=== PATIENT | male | born 1965 | race Hispanic/Latino ===

== ENCOUNTER 2017-07-04 07:11 | Emergency (ER) | payer SELFPAY ==
[2017-07-04] MEDS ORDERED: DELTASONE PO ONE (08:55)
[2017-07-04] MEDS ORDERED: TYLENOL PO ONE (08:57)
--- NOTE | 2017-07-04 08:58 | Emergency Department Report ---
Minor Respiratory - HPI Chief Complaint: Upper Respiratory Infection Stated Complaint: FLU SX Time Seen by Provider: 07/04/17 08:26 Severity: moderate Minor Respiratory: Yes Able to Tolerate Fluids, Yes Cough, No Rhinorrhea, No Sore Throat, No Ear Pain, No Sick Contacts, No Hemoptysis, No Chest Pain, No Shortness of Breath, No Fever Other History: 52-year-old smoker male with no prior medical history presents to ED complaining of cough and body aches that started yesterday. ED Review of Systems ROS: Stated complaint: FLU SX Other details as noted in HPI Constitutional: denies: chills, fever Eyes: denies: eye pain, eye discharge, vision change ENT: denies: ear pain, throat pain Respiratory: denies: cough, shortness of breath, wheezing Cardiovascular: denies: chest pain, palpitations Endocrine: no symptoms reported Gastrointestinal: denies: abdominal pain, nausea, diarrhea Genitourinary: denies: urgency, dysuria Musculoskeletal: denies: back pain, joint swelling, arthralgia Skin: denies: rash, lesions Neurological: denies: headache, weakness, paresthesias Psychiatric: denies: anxiety, depression Hematological/Lymphatic: denies: easy bleeding, easy bruising ED Past Medical Hx - Past Medical History Previous Medical History?: Yes Hx Asthma: Yes - Surgical History Past Surgical History?: No - Social History Smoking Status: Current Every Day Smoker Substance Use Type: Non Opiate Pain - Medications Home Medications: Home Medications Medication Instructions Recorded Confirmed Last Taken Type ALBUTEROL Inhaler [ProAir HFA 2 puff IH QID PRN #1 device 07/04/17 Unknown Rx Inhaler] Benzonatate [Tessalon Perles] 100 mg PO Q8HR #24 capsule 07/04/17 Unknown Rx Guaifen/Dextromethorphan/PE 10 ml PO Q6H #1 bottle 07/04/17 Unknown Rx [Robitussin Cough-Cold Cf Liq] Ibuprofen [Motrin] 800 mg PO Q8HR PRN #30 tablet 07/04/17 Unknown Rx Minor Respiratory Exam - Exam General: Vital signs noted. No distress. Alert and acting appropriately. HEENT: Yes Moist Mucous Membranes, No Pharyngeal Erythema, No Pharyngeal Exudates, No Rhinorrhea, No Conjuctival Injection, No Frontal Tenderness, No Maxillary Tenderness Ear: Neither TM Bulge, Neither TM Erythema, Neither EAC Pain, Neither EAC Discharge Neck: Yes Supple, No Adenopathy Lungs: Yes Good Air Exchange, No Wheezes, No Ronchi, No Stridor, No Cough, No Labored Respirations, No Retractions, No Use of Accessory Muscles, No Other Abnormal Lung Sounds Heart: Yes Regular, No Murmur Abdomen: Yes Normal Bowel Sounds, No Tenderness, No Peritoneal Signs Skin: No Rash, No Edema Neurologic: Alert and oriented, no deficits. Musculoskeletal: Unremarkable. ED Course Vital Signs 07/04/17 07:20 Temperature 98.4 F Pulse Rate 97 H Respiratory 18 Rate Blood Pressure 119/77 O2 Sat by Pulse 96 Oximetry ED Medical Decision Making - Radiology Data Radiology results: report reviewed, image reviewed Fluoro Time In Minutes: CHEST 2 VIEWS INDICATION: Cough. COMPARISON: 02/17/2012 FINDINGS: PA and lateral chest radiographs demonstrate normal cardiomediastinal silhouette. Clear, well-expanded lungs. Slight thoracic spine degenerative spurring at few levels. CONCLUSION: No acute chest process. Thank you for the opportunity to participate in this patient's care. Transcribed By: RS Dictated By: GEETHA LUNA MD Electronically Authenticated By: GEETHA LUNA MD Signed Date/Time: 07/04/17 0943 - Medical Decision Making 52-year-old male presents with upper respiratory infection with bronchitis. Fever resolved no fever during the ED stay. Patient received respiratory breathing treatment of DuoNeb in ED, prednisone, Robitussin. I discussed with the patient to cease smoking smoking only worsen symptoms. Discussed with mother symptomatic relief with [id number] medications. Discussed continue Tylenol and Motrin as needed for fever and pain. Discussed increase fluids and diet intake. Discussed rest much needed. Discussed daily vitamin C for immune booster. Discussed follow-up with fisheries inspector in 3-5 days. Patient's mother verbally states she understands and will comply the following instructions and follow-up Vital signs stable. Patient is in no acute distress Critical care attestation.: If time is entered above; I have spent that time in minutes in the direct care of this critically ill patient, excluding procedure time. ED Disposition Clinical Impression: URI (upper respiratory infection) Qualifiers: URI type: unspecified URI Qualified Code(s): J06.9 - Acute upper respiratory infection, unspecified Disposition: DC-01 TO HOME OR SELFCARE Is pt being admited?: No Does the pt Need Aspirin: No Condition: Stable Instructions: Upper Respiratory Infection (ED), Viral Syndrome (ED), Acute Cough (ED) Additional Instructions: Make sure to follow up with the primary care physician as discussed. Take all your medications as you've been prescribed. If you have any worsening symptoms or develop new symptoms please return to ED immediately. Prescriptions: ALBUTEROL Inhaler [ProAir HFA Inhaler] 2 puff IH QID PRN #1 device PRN Reason: Shortness Of Breath Benzonatate [Tessalon Perles] 100 mg PO Q8HR #24 capsule Guaifen/Dextromethorphan/PE [Robitussin Cough-Cold Cf Liq] 10 ml PO Q6H #1 bottle Ibuprofen [Motrin] 800 mg PO Q8HR PRN #30 tablet PRN Reason: Pain Referrals: PRIMARY CARE, [Primary Care Provider] - 3-5 Days [facility] [Outside] - 3-5 Days [facility] [Outside] - 3-5 Days [facility] [Outside] - 3-5 Days Forms: Accompanied Note, Work/School Release Form(ED) Time of Disposition: 10:51
--- NOTE | 2017-07-04 09:51 | XRay Report ---
CHEST 2 VIEWS INDICATION: Cough. COMPARISON: 02/17/2012 FINDINGS: PA and lateral chest radiographs demonstrate normal cardiomediastinal silhouette. Clear, well-expanded lungs. Slight thoracic spine degenerative spurring at few levels. CONCLUSION: No acute chest process. Thank you for the opportunity to participate in this patient's care.
[2017-07-04 10:25] VITALS: BP 120/75
== END 2017-07-04 11:09 | disposition home or self-care (01) ==
LOC: ED 07:11
DX: J06.9 Acute upper respiratory infection, unspecified (principal); J45.909 Unspecified asthma, uncomplicated; F17.200 Nicotine dependence, unspecified, uncomplicated
CPT/HCPCS: 71046; 99283; J7512

== ENCOUNTER 2020-01-07 17:36 | Emergency (ER) | payer SELFPAY ==
--- NOTE | 2020-01-07 18:41 | Event Note ---
ED Screening Note ED Screening Note: BLE mostly in the ankles that began a year ago and worsened today has not seen anyone for this no daily meds pmhx asthma +smoker This initial assessment/diagnostic orders/clinical plan/treatment(s) is/are subject to change based on patients health status, clinical progression and re- assessment by fellow clinical providers in the ED. Further treatment and workup at subsequent clinical providers discretion. Patient/guardian urged not to elope from the ED as their condition may be serious if not clinically assessed and managed. Initial orders include: labs
[2020-01-07 19:42] LABS: Hematocrit 42.3 % (35.5-45.6); Hemoglobin 13.9 gm/dl (11.8-15.2); Mean Corpuscular HGB Conc 33 % (32-34); Mean Corpuscular Volume 87 fl (84-94); Platelet Count 339 K/mm3 (140-440); Red Blood Count 4.86 M/mm3 (3.65-5.03); Red Cell Distribution Width 14.2 % (13.2-15.2)
[2020-01-07] MEDS ORDERED: ACETAMINOPHEN 500 MG TAB PO ONE (20:06)
[2020-01-07] MEDS ORDERED: IBUPROFEN 600 MG TAB PO ONE (20:06)
[2020-01-07] MEDS ORDERED: predniSONE 20 MG TAB PO ONE (20:06)
[2020-01-07 20:10] LABS: Alanine Aminotransferase 20 units/L (7-56); Albumin 4.4 g/dL (3.9-5); BUN/Creatinine Ratio 17; Blood Urea Nitrogen 15 mg/dL (9-20); Calcium 9.4 mg/dL (8.4-10.2); Hemolysis Index 27
--- NOTE | 2020-01-07 21:04 | Emergency Department Report ---
ED Extremity Problem HPI - General Chief complaint: Extremity Problem,Nontraumatic Stated complaint: SWOLLEN LEG Time Seen by Provider: 01/07/20 18:38 Source: patient Mode of arrival: Ambulatory Limitations: No Limitations - History of Present Illness Initial comments: Patient is a 54-year-old male with history of asthma presents to the ED with worsening bilateral ankle and foot pain with swelling for the last 2 days. Patient states that he has had this pain in his ankles and feet for over 1 year and states that he has never been evaluated for the same. Patient states that in the last 2 days he has been on his feet a lot walking around and that the pain got worse. Patient denies shortness of breath, chest pain, traumatic injury, fall, nausea and vomiting, low back pain, dizziness, syncope, fever, chills, cough, heavy lifting or abdominal pain. MD Complaint: extremity pain (Bilateral ankle and foot pain), extremity swelling (Bilateral foot and ankle), joint swelling (Bilateral foot and ankle), joint mary nt (Bilateral ankle and foot) -: Gradual, year(s) (1) Location: bilateral lower extremity (ankles and feet) History of Same: Yes -: Yes arthralgia, No fever, No associated dyspnea, No associated chest pain Radiation: none Severity scale (0 -10): 10 Quality: aching, sharp Consistency: constant Improves with: nothing Worsens with: weight bearing, walking, exertion, palpation Associated Symptoms: denies other symptoms, arthralgias. denies: chest pain, shortness of breath, myalgias, rash, other - Related Data Previous Rx's Medication Instructions Recorded Last Taken Type Albuterol Mdi (or & Nicu Only) 2 puff IH QID PRN #1 device 07/04/17 Unknown Rx [ProAir HFA Inhaler] Benzonatate [Tessalon Perles] 100 mg PO Q8HR #24 capsule 07/04/17 Unknown Rx Guaifen/Dextromethorphan/PE 10 ml PO Q6H #1 bottle 07/04/17 Unknown Rx [Robitussin Cough-Cold Cf Liq] Ibuprofen [Motrin] 800 mg PO Q8HR PRN #30 tablet 07/04/17 Unknown Rx Cyclobenzaprine [Flexeril] 10 mg PO TID PRN #21 tablet 01/07/20 Unknown Rx Naproxen 500 mg PO Q12H PRN #30 tablet 01/07/20 Unknown Rx predniSONE [Deltasone] 60 mg PO QDAY #15 tab 01/07/20 Unknown Rx Allergies Allergy/AdvReac Type Severity Reaction Status Date / Time No Known Allergies Allergy Unverified 07/04/17 07:23 ED Review of Systems ROS: Stated complaint: SWOLLEN LEG Other details as noted in HPI Constitutional: denies: chills, fever Eyes: denies: eye pain, eye discharge, vision change ENT: denies: ear pain, throat pain Respiratory: denies: cough, shortness of breath, wheezing Cardiovascular: denies: chest pain, palpitations Endocrine: no symptoms reported Gastrointestinal: denies: abdominal pain, nausea, diarrhea Genitourinary: denies: urgency, dysuria Musculoskeletal: joint swelling (Mild bilateral foot and ankle swelling), arthralgia (Bilateral ankle and foot pain with mild swelling), myalgia. denies: back pain Skin: denies: rash, lesions Neurological: denies: headache, weakness, paresthesias Psychiatric: denies: anxiety, depression Hematological/Lymphatic: denies: easy bleeding, easy bruising ED Past Medical Hx - Past Medical History Previous Medical History?: Yes Hx Asthma: Yes - Surgical History Past Surgical History?: No - Social History Smoking Status: Current Every Day Smoker Substance Use Type: None - Medications Home Medications: Home Medications Medication Instructions Recorded Confirmed Last Taken Type Albuterol Mdi (or & Nicu Only) 2 puff IH QID PRN #1 device 07/04/17 Unknown Rx [ProAir HFA Inhaler] Benzonatate [Tessalon Perles] 100 mg PO Q8HR #24 capsule 07/04/17 Unknown Rx Guaifen/Dextromethorphan/PE 10 ml PO Q6H #1 bottle 07/04/17 Unknown Rx [Robitussin Cough-Cold Cf Liq] Ibuprofen [Motrin] 800 mg PO Q8HR PRN #30 tablet 07/04/17 Unknown Rx Cyclobenzaprine [Flexeril] 10 mg PO TID PRN #21 tablet 01/07/20 Unknown Rx Naproxen 500 mg PO Q12H PRN #30 tablet 01/07/20 Unknown Rx predniSONE [Deltasone] 60 mg PO QDAY #15 tab 01/07/20 Unknown Rx ED Physical Exam - General Limitations: No Limitations General appearance: alert, in no apparent distress - Head Head exam: Present: atraumatic, normocephalic, normal inspection - Eye Eye exam: Present: normal appearance, PERRL, EOMI Pupils: Present: normal accommodation - ENT ENT exam: Present: normal exam, normal orophraynx, mucous membranes moist, TM's normal bilaterally, normal external ear exam - Neck Neck exam: Present: normal inspection, full ROM. Absent: tenderness, l ymphadenopathy - Respiratory Respiratory exam: Present: normal lung sounds bilaterally. Absent: respiratory distress, wheezes, rales, stridor, chest wall tenderness, accessory muscle use, decreased breath sounds, prolonged expiratory - Cardiovascular Cardiovascular Exam: Present: normal rhythm, tachycardia, normal heart sounds. Absent: systolic murmur, diastolic murmur, rubs, gallop - GI/Abdominal GI/Abdominal exam: Present: soft, normal bowel sounds. Absent: tenderness, guar ding, rebound, hyperactive bowel sounds, hypoactive bowel sounds, mass - Extremities Exam Extremities exam: Present: normal inspection, full ROM, tenderness (Bilateral ankle and foot mild tenderness), normal capillary refill, joint swelling (Mild bilateral ankle and foot swelling) - Back Exam Back exam: Present: normal inspection, full ROM. Absent: tenderness, CVA tenderness (R), CVA tenderness (L), muscle spasm, paraspinal tenderness, vertebral tenderness - Neurological Exam Neurological exam: Present: alert, oriented X3, CN II-XII intact, normal gait, reflexes normal - Psychiatric Psychiatric exam: Present: normal affect, normal mood - Skin Skin exam: Present: warm, dry, intact, normal color. Absent: rash ED Course Vital Signs 01/07/20 01/07/20 01/07/20 18:39 20:22 20:25 Temperature 97.9 F Pulse Rate 102 H Respiratory 20 18 18 Rate Blood Pressure 140/87 O2 Sat by Pulse 97 Oximetry ED Medical Decision Making - Lab Data Result diagrams: 01/07/20 19:29 01/07/20 19:29 - Medical Decision Making This is a 54-year-old male with history of asthma presents to the ED with worsening bilateral ankle and foot pain with swelling for the last 2 days. Patient states that he has had this pain in his ankles and feet for over 1 year and states that he has never been evaluated for the same. Patient states that in the last 2 days he has been on his feet a lot walking around and that the pain got worse. In the ED, patient is alert and oriented x3 and is not in distress. Patient was treated for pain in the ED and lab test results are reviewed and showed acute leukocytosis of 13,200 which is a nonspecific finding. The rest of the lab test results are all nonactionable. Patient was discharged home on pain medications and advised follow-up with his primary care physician in 7 to 10 days for reevaluation or return to the ED immediately if symptoms get worse. - Differential Diagnosis Osteoarthritis; Tendinitis; Muscle strain Critical care attestation.: If time is entered above; I have spent that time in minutes in the direct care of this critically ill patient, excluding procedure time. ED Disposition Clinical Impression: Chronic osteoarthritis, Tendonitis of ankle or foot Disposition: - TO HOME OR SELFCARE Is pt being admited?: No Does the pt Need Aspirin: No Condition: Stable Instructions: Tendinitis (ED), Osteoarthritis (ED) Additional Instructions: Take medication with food, drink plenty of fluids and follow-up with your prim [place] care physician in 7 to 10 days for reevaluation. Return to the ED immediately if symptoms get worse. Prescriptions: predniSONE [Deltasone] 60 mg PO QDAY #15 tab Cyclobenzaprine [Flexeril] 10 mg PO TID PRN #21 tablet PRN Reason: Muscle Spasm Naproxen 500 mg PO Q12H PRN #30 tablet PRN Reason: Pain , Severe (7-10) Referrals: [facility] [Provider Group] - 3-5 Days Time of Disposition: 21:02 Print Language: OCCITAN
[2020-01-07 21:29] LABS: Basophils % (Manual) 0 % (0.0-1.8); RBC Morphology Normal; Total Cells Counted 100
[2020-01-07 21:46] VITALS: BP 144/73
== END 2020-01-07 21:48 | disposition home or self-care (01) ==
LOC: ED 17:36
DX: M77.52 Other enthesopathy of left foot and ankle (principal); M77.51 Other enthesopathy of right foot and ankle; M19.072 Primary osteoarthritis, left ankle and foot; M19.071 Primary osteoarthritis, right ankle and foot; J45.909 Unspecified asthma, uncomplicated; F17.200 Nicotine dependence, unspecified, uncomplicated; Z79.1 Long term (current) use of non-steroidal anti-inflammatories (NSAID); Z79.899 Other long term (current) drug therapy
CPT/HCPCS: 36415; 80053; 83880; 84550; 85007; 85025; 99283; J7512

== ENCOUNTER 2021-12-02 15:07 | Inpatient (IN) | payer MEDICAID ==
[2021-12-03] MEDS: METOPROLOL TARTRATE 25 MG TAB PO SCH ×2 (00:16→08:25)
[2021-12-03] MEDS: levETIRAcetam 500 MG TAB PO SCH ×3 (00:16→21:15)
[2021-12-03] MEDS: MELATONIN 5 MG TAB PO PRN ×2 (00:16→21:13)
[2021-12-03 01:46] LABS: Basophils % (Auto) 0.6 % (0.0-1.8); Eosinophils # (Auto) 0.2 K/mm3 (0.0-0.4); Eosinophils % (Auto) 2.8 % (0.0-4.3); Hematocrit 28.8 % (35.5-45.6); Hemoglobin 9.4 gm/dl (11.8-15.2); Lymphocytes % (Auto) 23.3 % (13.4-35.0); Mean Corpuscular HGB Conc 32 % (32-34); Mean Corpuscular Volume 85 fl (84-94); Monocytes # (Auto) 0.7 K/mm3 (0.0-0.8); Monocytes % (Auto) 8.8 % (0.0-7.3); Platelet Count 329 K/mm3 (140-440); Red Cell Distribution Width 16.8 % (13.2-15.2)
[2021-12-03 03:25] LABS: Alanine Aminotransferase 13 units/L (7-56); Albumin 3.7 g/dL (3.9-5); BUN/Creatinine Ratio 13; Blood Urea Nitrogen 12 mg/dL (9-20); Chol/HDL Ratio 3.86 %; HDL Cholesterol 36 mg/dL (40-59); Hemolysis Index 2; LDL Cholesterol,Direct 83 mg/dL (50-130)
[2021-12-03] MEDS ORDERED: ALBUTEROL 8.5 GM MDI INHALATION IH PRN (08:16)
--- NOTE | 2021-12-03 08:16 | History and Physical Report ---
GP History & Physical - History of Present Illness Date of admission: 12/02/21 Date of Examination: 12/03/21 Chief Complaint: suicidal ideation History of Present Illness: The patient is a 56 years old male with history of polysubstance abuse who was admitted for suicidal ideation. Per note, the has suicidal ideation because he is going blind and unable to provide for his family. The patient was seen today. He is calm, alert and oriented x3. He reports ongoing depression and intermittent suicidal ideation. He reports recent trigger such as " my son always telling me and his mom the we don't care about him and we do the best we can but that's not good enough for him; I think his step brother has a lot to do with it." The patient endorses depression states his disability makes him feel worthless and low self esteem. The patient denies any current suicidal/homicidal ideation and denies hallucinations. PAST PSYCHIATRIC HISTORY: Diagnoses: Polysubstance abuse,Depression Suicide attempts or Self-harm behavior: Denies Prior psychiatric hospitalizations: Yes Substance Abuse history:Meth, crack cocaine, Marijuana, LSD Previous psychiatric medications tried: Unknown Outpatient treatment: Unknown PAST MEDICAL HISTORY: Stroke, HTN, CHF, hyperlipedemia, Seizure, CABG Family Psychiatric History: None reported or documented SOCIAL HISTORY Marital Status: Living Arrangements: Lives with Employment Status: Disabled Access to guns/weapons: Denies Education: 10th grade History of Abuse:Denies Legal History: Denies REVIEW OF SYSTEMS Constitutional: Negative for weight loss ENT: Negative for stridor Respiratory: Negative for cough or hemoptysis All other systems reviewed and are negative MENTAL STATUS EXAMINATION General Appearance and Behavior: Age appropriate, wearing appropriate clothes, cooperative, polite with questioning, good eye contact Cooperation: cooperative Psychomotor Behavior: Psychomotor normal Mood: Depressed Affect and affective range: congruent with stated affect Thought Process: Goal directed Thought Content: Reality oriented Speech: Normal volume, Regular rate and rhythm Suicidal Ideation: Denies Homicidal Ideation: Denies Hallucination: Denies Delusions:Denies Impulse Control: Limited Insight and Judgment: Limited Memory: Intact Attention:attentive Orientation: Alert and oriented Diagnoses: Major depressive disorder Treatment Plan Patient admitted for inpatient psychiatric evaluation, medication adjustment and close monitoring The patient's behavior, mood, sleep and appetite will be closely monitored. Patient enrolled in individual and group therapeutic sessions and encouraged to attend. Patient provided with a safe and structured environment. Patient's physical health needs will be addressed by the Hospitalist. Hospitalist Consulted Labs including CBC, CMP, Lipid profile and Hemoglobin A1C levels ordered for baseline reference Social Assessment will be completed and the Meat Pumper will work with patient and family to ensure a suitable and safe disposition Medication adjustment will be made as clinically indicated Continue home meds Start Effexor 37.5mg po daily Usual Wellness Moravian/Preservation: - Start Trazodone 50 mg po QHS & 50 mg po QHS PRN between 10 PM & 2 AM for insomnia - Start Melatonin 5 mg po QHS to promote circadian rhythm The patient agreed on the treatment plan, understood the risk, benefit, alternative treatment, potential consequence of no treatment, and gave informed consent. Estimated days: 7 Post hospital care: primary care provider, psychiatric provider Case staffed with Dr. Mcclelland Legal Status: Voluntary Patient Problems: Legal Status: Voluntary Medications and Allergies Medications and Allergies Allergies Allergy/AdvReac Type Severity Reaction Status Date / Time naproxen Allergy Unknown Unverified 12/02/21 15:08 Home Medications Medication Instructions Recorded Confirmed Last Taken Type Albuterol Mdi (or & Nicu Only) 2 puff IH QID PRN #1 device 07/04/17 12/03/21 Unknown Rx [ProAir HFA Inhaler] Benzonatate [Tessalon Perles] 100 mg PO Q8HR #24 capsule 07/04/17 12/03/21 Unknown Rx Guaifen/Dextromethorphan/PE 10 ml PO Q6H #1 bottle 07/04/17 12/03/21 Unknown Rx [Robitussin Cough-Cold Cf Liq] Ibuprofen [Motrin] 800 mg PO Q8HR PRN #30 tablet 07/04/17 12/03/21 Unknown Rx Cyclobenzaprine [Flexeril] 10 mg PO TID PRN #21 tablet 01/07/20 12/03/21 Unknown Rx predniSONE [Deltasone] 60 mg PO QDAY #15 tab 01/07/20 12/03/21 Unknown Rx Active Meds: Active Medications Atorvastatin Calcium (Atorvastatin 40 Mg Tab) 80 mg PO QHS [facility] Last Admin: 12/03/21 00:16 Dose: 80 mg Levetiracetam (Levetiracetam 500 Mg Tab) 1,000 mg PO BID [facility] Last Admin: 12/03/21 00:16 Dose: 1,000 mg Melatonin (Melatonin 5 Mg Tab) 5 mg PO QHS PRN PRN Reason: Sleep Last Admin: 12/03/21 00:16 Dose: 5 mg Metoprolol Tartrate (Metoprolol Tartrate 25 Mg Tab) 25 mg PO BID@0800,1700 [facility]ASH[facility] Last Admin: 12/03/21 00:16 Dose: 25 mg Results - Results Labs/Vitals: Laboratory Last Values WBC 8.5 K/mm3 (4.5-11.0) 12/03/21 01:09 RBC 3.40 M/mm3 (3.65-5.03) L 12/03/21 01:09 Hgb 9.4 gm/dl (11.8-15.2) L 12/03/21 01:09 Hct 28.8 % (35.5-45.6) L 12/03/21 01:09 MCV 85 fl (84-94) 12/03/21 01:09 MCH 28 pg (28-32) 12/03/21 01:09 MCHC 32 % (32-34) 12/03/21 01:09 RDW 16.8 % (13.2-15.2) H 12/03/21 01:09 Plt Count 329 K/mm3 (140-440) 12/03/21 01:09 Lymph % (Auto) 23.3 % (13.4-35.0) 12/03/21 01:09 Dixon % (Auto) 8.8 % (0.0-7.3) H 12/03/21 01:09 Eos % (Auto) 2.8 % (0.0-4.3) 12/03/21 01:09 Baso % (Auto) 0.6 % (0.0-1.8) 12/03/21 01:09 Lymph # (Auto) 2.0 K/mm3 (1.2-5.4) 12/03/21 01:09 Dixon # (Auto) 0.7 K/mm3 (0.0-0.8) 12/03/21 01:09 Eos # (Auto) 0.2 K/mm3 (0.0-0.4) 12/03/21 01:09 Baso # (Auto) 0.0 K/mm3 (0.0-0.1) 12/03/21 01:09 Seg Neutrophils % 64.5 % (40.0-70.0) 12/03/21 01:09 Seg Neutrophils # 5.5 K/mm3 (1.8-7.7) 12/03/21 01:09 Sodium 139 mmol/L (137-145) 12/03/21 01:09 Potassium 3.9 mmol/L (3.6-5.0) 12/03/21 01:09 Chloride 100.9 mmol/L (98-107) 12/03/21 01:09 Carbon Dioxide 23 mmol/L (22-30) 12/03/21 01:09 Anion Gap 19 mmol/L 12/03/21 01:09 BUN 12 mg/dL (9-20) 12/03/21 01:09 Creatinine 0.9 mg/dL (0.8-1.3) 12/03/21 01:09 Estimated GFR > 60 ml/min 12/03/21 01:09 BUN/Creatinine Ratio 13 % 12/03/21 01:09 Glucose 102 mg/dL (75-100) H 12/03/21 01:09 Hemoglobin A1c 5.0 % (4-6) 12/03/21 01:09 Calcium 9.0 mg/dL (8.4-10.2) 12/03/21 01:09 Total Bilirubin 0.30 mg/dL (0.1-1.2) 12/03/21 01:09 AST 23 units/L (5-40) 12/03/21 01:09 ALT 13 units/L (7-56) 12/03/21 01:09 Alkaline Phosphatase 144 units/L (35-129) H 12/03/21 01:09 Total Protein 6.7 g/dL (6.3-8.2) 12/03/21 01:09 Albumin 3.7 g/dL (3.9-5) L 12/03/21 01:09 Albumin/Globulin Ratio 1.2 % 12/03/21 01:09 Triglycerides 119 mg/dL (2-149) 12/03/21 01:09 Cholesterol 139 mg/dL (50-199) 12/03/21 01:09 LDL Cholesterol Direct 83 mg/dL (50-130) 12/03/21 01:09 HDL Cholesterol 36 mg/dL (40-59) L 12/03/21 01:09 Cholesterol/HDL Ratio 3.86 % 12/03/21 01:09 TSH 4.710 mlU/mL (0.270-4.200) H 12/03/21 01:09 Last Vital Signs Temp 97.8 F 12/02/21 22:25 Pulse 92 H 12/03/21 00:16 Resp 18 12/02/21 22:25 BP 123/74 12/03/21 00:16 Pulse Ox 97 12/02/21 22:25 Physical Examination - Constitutional Vitals: Vital Signs Temp Pulse Resp BP Pulse Ox 97.8 F 92 H 18 123/74 97 12/02/21 22:25 12/03/21 00:16 12/02/21 22:25 12/03/21 00:16 12/02/21 22:25 Temperature -Last 24 Hours Temperature 97.8 F Mental Status Exam - Vital signs Last Vital Signs Temp 97.8 F 12/02/21 22:25 Pulse 92 H 12/03/21 00:16 Resp 18 12/02/21 22:25 BP 123/74 12/03/21 00:16 Pulse Ox 97 12/02/21 22:25 Physician Certification - Certification Statement Physician Certification Statement: This is an acknowledgement statement that MELYSSA IGNACIO is a 56 year old M who requires inpatient psychiatric admission for treatment which could reasonably be expected to improve the patient's condition for Estimated period of time patient will need to remain in the hospital: [ ] Plan for post-hospital care: [ ]
[2021-12-03] MEDS ORDERED: PHENYLEPHRINE PO SCH (08:30)
[2021-12-03] MEDS ORDERED: DEXTROMETHORPHAN PO SCH (08:30)
[2021-12-03] MEDS ORDERED: [UNRECOGNIZED DRUG - OTHER] PO SCH (08:30)
[2021-12-03] MEDS ORDERED: GUAIFENESIN PO SCH (08:30)
[2021-12-03] MEDS ORDERED: CYCLOBENZAPRINE 10 MG TAB PO PRN (09:00)
[2021-12-03] MEDS ORDERED: ALBUTEROL 2.5 MG/3 ML NEBU IH PRN (09:00)
[2021-12-03] MEDS ORDERED: IBUPROFEN 800 MG TAB PO PRN (09:00)
[2021-12-03] MEDS ORDERED: guaiFENesin DM 200/20 MG ORAL LIQD 10 ML PO PRN (10:00)
[2021-12-03] MEDS ORDERED: VENLAFAXINE 37.5 MG TAB PO SCH (10:00)
[2021-12-03] MEDS ORDERED: predniSONE 20 MG TAB PO SCH (10:00)
[2021-12-03] MEDS: BENZONATATE 100 MG CAP PO SCH ×3 (11:27→21:16)
--- NOTE | 2021-12-03 16:07 | Consultation ---
History of Present Illness - Reason for Consult Consult date: 12/03/21 Medical management - History of Present Illness The patient is a 56 years old male with history of polysubstance abuse who was admitted for suicidal ideation. Per note, the has suicidal ideation because he is going blind and unable to provide for his family. Hospitalist service was consulted for medical management. Past History Past Medical History: other (Progressive vision loss) Social history: , lives with family, prescription drug abuse, full code, other (Polysubstance abuse) Medications and Allergies Allergies Allergy/AdvReac Type Severity Reaction Status Date / Time naproxen Allergy Intermediate Shortness Verified 12/03/21 14:38 of Breath Home Medications Medication Instructions Recorded Confirmed Last Taken Type Amiodarone HCl [Pacerone] 200 mg PO DAILY 12/03/21 12/03/21 Unknown History Apixaban [Eliquis] 5 mg PO BID 12/03/21 12/03/21 Unknown History Aspirin EC [Halfprin EC] 81 mg PO QDAY 12/03/21 12/04/21 Unknown History Atorvastatin [Lipitor Tab] 80 mg PO QHS 12/04/21 12/04/21 Unknown History Citalopram [celeXA] 10 mg PO QDAY 12/04/21 12/04/21 Unknown History Furosemide [Lasix TAB] 40 mg PO QDAY 12/04/21 12/04/21 Unknown History Melatonin [Melatonin 5MG TAB] 5 mg PO HS 12/04/21 12/04/21 Unknown History Metoprolol [Lopressor] 25 mg PO BID 12/04/21 12/04/21 Unknown History Multivitamin/Iron/Folic Acid 1 each PO DAILY 12/04/21 12/04/21 Unknown History [Multivitamin with Iron Tablet] Potassium Chloride [K-Dur] 20 meq PO QDAY 12/04/21 12/04/21 Unknown History levETIRAcetam [Keppra TAB] 1,000 mg PO BID 12/04/21 12/04/21 Unknown History Active Meds: Active Medications Albuterol (Albuterol 2.5 Mg/3 Ml Nebu) 2.5 mg IH Q4HRT PRN PRN Reason: Shortness Of Breath Benzonatate (Benzonatate 100 Mg Cap) 100 mg PO Q8HR [facility] Last Admin: 12/03/21 14:30 Dose: 100 mg Cyclobenzaprine HCl (Cyclobenzaprine 10 Mg Tab) 10 mg PO TID PRN PRN Reason: Muscle Spasm Guaifenesin (Guaifenesin Dm 200/20 Mg Oral Liqd 10 Ml) 10 ml PO Q6H PRN PRN Reason: Cough Ibuprofen (Ibuprofen 800 Mg Tab) 800 mg PO Q8HR PRN PRN Reason: Pain, Mild (1-3) Last Admin: 12/03/21 09:48 Dose: 800 mg Levetiracetam (Levetiracetam 500 Mg Tab) 1,000 mg PO BID [facility] Last Admin: 12/03/21 09:47 Dose: 1,000 mg Melatonin (Melatonin 5 Mg Tab) 5 mg PO QHS PRN PRN Reason: Sleep Last Admin: 12/03/21 00:16 Dose: 5 mg Prednisone (Prednisone 20 Mg Tab) 60 mg PO QDAY [facility] Last Admin: 12/03/21 11:28 Dose: 60 mg Venlafaxine HCl (Venlafaxine 37.5 Mg Tab) 37.5 mg PO DAILY [facility] Last Admin: 12/03/21 10:33 Dose: 37.5 mg Review of Systems Psychiatric: depression, sadness/tearfullness Exam - Constitutional Vitals: Temp Pulse Resp BP Pulse Ox 97.2 F L 90 17 118/74 98 12/03/21 08:24 12/03/21 08:25 12/03/21 08:24 12/03/21 08:25 12/03/21 08:24 General appearance: Present: no acute distress, well-nourished - EENT Eyes: Present: PERRL, EOM intact ENT: hearing intact, clear oral mucosa, dentition normal - Neck Neck: Present: supple, normal ROM - Respiratory Respiratory effort: normal Respiratory: bilateral: CTA - Cardiovascular Rhythm: regular Heart Sounds: Present: S1 & S2 - Extremities Extremities: no ischemia, pulses intact, pulses symmetrical, No edema, normal temperature, normal color Peripheral Pulses: within normal limits - Abdominal General gastrointestinal: Present: soft, non-tender, non-distended, normal bowel sounds Male genitourinary: Present: deferred - Rectal Rectal Exam: deferred - Integumentary Integumentary: Present: clear, warm, dry - Musculoskeletal Musculoskeletal: strength equal bilaterally - Psychiatric Psychiatric: appropriate mood/affect, depressed - Neurologic Neurologic: CNII-XII intact, moves all extremities - Allied Health Allied health notes reviewed: nursing Results - Labs CBC & Chem 7: 12/04/21 00:48 12/04/21 00:48 Labs: Abnormal lab results 12/03/21 12/03/21 12/03/21 Range/Units 01:09 01:09 01:09 RBC 3.40 L (3.65-5.03) M/mm3 Hgb 9.4 L (11.8-15.2) gm/dl Hct 28.8 L (35.5-45.6) % RDW 16.8 H (13.2-15.2) % [place] % (Auto) 8.8 H (0.0-7.3) % Glucose 102 H (75-100) mg/dL Alkaline Phosphatase 144 H (35-129) units/L Albumin 3.7 L (3.9-5) g/dL HDL Cholesterol 36 L (40-59) mg/dL TSH 4.710 H (0.270-4.200) mlU/mL Assessment and Plan The patient is a 56 years old male with history of polysubstance abuse who was admitted for suicidal ideation. Per note, the has suicidal ideation because he is going blind and unable to provide for his family. #Suicidal ideation Management per primary #Mild intermittent asthma Continue albuterol nebs every 4 hours as needed #Normocytic anemia Hemoglobin 9.4 Ordering iron profile + ferritin. Transfuse if hemoglobin <7 or patient becomes symptomatic. #Polysubstance dependence -Patient engages in the following substances: unknown -Counseled patient about the importance of cessation of substance abuse. Offered resources to help with quitting. Patient expresses understanding. -Time: +15 mins #Advanced care planning -Disease education conducted, care plan discussed, diagnoses discussed, prognosis discussed, and patient acknowledges understanding with care plan -Time: +30 min
[2021-12-04 00:59] LABS: Hemoglobin 9.1 gm/dl (11.8-15.2); Mean Corpuscular HGB Conc 32 % (32-34); Mean Corpuscular Volume 85 fl (84-94); Platelet Count 323 K/mm3 (140-440); Red Cell Distribution Width 16.8 % (13.2-15.2)
[2021-12-04 01:18] LABS: INR 0.99 (0.87-1.13)
[2021-12-04 01:19] LABS: Partial Thromboplastin Time 31.1 Sec. (24.2-36.6)
--- NOTE | 2021-12-04 08:28 | Progress Note ---
Subjective Date of service: 12/04/21 Principal diagnosis: Major Depressive Disorder Subjective Comment: The patient was seen today. He still endorses suicidal thoughts. He says he doesn't sleep that great. The patient says he falls asleep when it's time to get up. He denies hallucinations. REVIEW OF SYSTEMS Constitutional: Negative for weight loss ENT: Negative for stridor Respiratory: Negative for cough or hemoptysis All other systems reviewed and are negative MENTAL STATUS EXAMINATION General Appearance and Behavior: Age appropriate, wearing appropriate clothes, cooperative, polite with questioning, good eye contact Cooperation: cooperative Psychomotor Behavior: Psychomotor normal Mood: Depressed Affect and affective range: congruent with stated affect Thought Process: Goal directed Thought Content: Reality oriented Speech: Normal volume, Regular rate and rhythm Suicidal Ideation: Denies Homicidal Ideation: Denies Hallucination: Denies Delusions:Denies Impulse Control: Limited Insight and Judgment: Limited Memory: Intact Attention:attentive Orientation: Alert and oriented Diagnoses: Major depressive disorder Treatment Plan Patient admitted for inpatient psychiatric evaluation, medication adjustment and close monitoring The patient's behavior, mood, sleep and appetite will be closely monitored. Patient enrolled in individual and group therapeutic sessions and encouraged to attend. Patient provided with a safe and structured environment. Patient's physical health needs will be addressed by the Hospitalist. Hospitalist Consulted Labs including CBC, CMP, Lipid profile and Hemoglobin A1C levels ordered for baseline reference Social Assessment will be completed and the Sensor Specialist will work with patient and family to ensure a suitable and safe disposition Medication adjustment will be made as clinically indicated Continue Effexor 37.5mg po daily Increase Melatonin 10mg po qhs Start Trazodone 50mg po qhs Usual Wellness [employer]/Preservation: - Start Trazodone 50 mg po QHS & 50 mg po QHS PRN between 10 PM & 2 AM for insomnia - Start Melatonin 5 mg po QHS to promote circadian rhythm The patient agreed on the treatment plan, understood the risk, benefit, alternative treatment, potential consequence of no treatment, and gave informed consent. Estimated days: 7 Post hospital care: primary care provider, psychiatric provider Case staffed with Dr. Mcclelland Medications and Allergies Allergies Allergy/AdvReac Type Severity Reaction Status Date / Time naproxen Allergy Intermediate Shortness Verified 12/03/21 14:38 of Breath Home Medications Medication Instructions Recorded Confirmed Last Taken Type Amiodarone HCl [Pacerone] 200 mg PO DAILY 12/03/21 12/03/21 Unknown History Apixaban [Eliquis] 5 mg PO BID 12/03/21 12/03/21 Unknown History Aspirin EC [Halfprin EC] 81 mg PO QDAY 12/03/21 12/04/21 Unknown History Atorvastatin [Lipitor Tab] 80 mg PO QHS 12/04/21 12/04/21 Unknown History Citalopram [celeXA] 10 mg PO QDAY 12/04/21 12/04/21 Unknown History Furosemide [Lasix TAB] 40 mg PO QDAY 12/04/21 12/04/21 Unknown History Melatonin [Melatonin 5MG TAB] 5 mg PO HS 12/04/21 12/04/21 Unknown History Metoprolol [Lopressor] 25 mg PO BID 12/04/21 12/04/21 Unknown History Multivitamin/Iron/Folic Acid 1 each PO DAILY 12/04/21 12/04/21 Unknown History [Multivitamin with Iron Tablet] Potassium Chloride [K-Dur] 20 meq PO QDAY 12/04/21 12/04/21 Unknown History levETIRAcetam [Keppra TAB] 1,000 mg PO BID 12/04/21 12/04/21 Unknown History Active Meds: Active Medications Amiodarone HCl (Amiodarone 200 Mg Tab) 200 mg PO DAILY [facility] Apixaban (Apixaban 5 Mg Tab) 5 mg PO Q12HR [facility]; Protocol Aspirin (Aspirin Ec 81 Mg Tab) 81 mg PO QDAY [facility] Atorvastatin Calcium (Atorvastatin 40 Mg Tab) 80 mg PO QHS [facility] Citalopram Hydrobromide (Citalopram 10 Mg Tab) 10 mg PO QDAY [facility] Furosemide (Furosemide 40 Mg Tab) 40 mg PO QDAY [facility] Levetiracetam (Levetiracetam 500 Mg Tab) 1,000 mg PO BID [facility] Last Admin: 12/03/21 21:15 Dose: 1,000 mg Melatonin (Melatonin 5 Mg Tab) 5 mg PO QHS [facility] Metoprolol Tartrate (Metoprolol Tartrate 25 Mg Tab) 25 mg PO BID [facility] Multivitamins/Minerals (Multivitamins,Ther W-Minerals Tab) 1 each PO QDAY [facility] Potassium Chloride (Potassium Chloride Er 20 Meq Tab) 20 meq PO QDAY [facility] Results - Results Labs/Vitals: Laboratory Last Values WBC 8.0 K/mm3 (4.5-11.0) 12/04/21 00:48 RBC 3.30 M/mm3 (3.65-5.03) L 12/04/21 00:48 Hgb 9.1 gm/dl (11.8-15.2) L 12/04/21 00:48 Hct 28.0 % (35.5-45.6) L 12/04/21 00:48 MCV 85 fl (84-94) 12/04/21 00:48 MCH 28 pg (28-32) 12/04/21 00:48 MCHC 32 % (32-34) 12/04/21 00:48 RDW 16.8 % (13.2-15.2) H 12/04/21 00:48 Plt Count 323 K/mm3 (140-440) 12/04/21 00:48 Lymph % (Auto) 23.3 % (13.4-35.0) 12/03/21 01:09 [place] % (Auto) 8.8 % (0.0-7.3) H 12/03/21 01:09 Eos % (Auto) 2.8 % (0.0-4.3) 12/03/21 01:09 Baso % (Auto) 0.6 % (0.0-1.8) 12/03/21 01:09 Lymph # (Auto) 2.0 K/mm3 (1.2-5.4) 12/03/21 01:09 [place] # (Auto) 0.7 K/mm3 (0.0-0.8) 12/03/21 01:09 Eos # (Auto) 0.2 K/mm3 (0.0-0.4) 12/03/21 01:09 Baso # (Auto) 0.0 K/mm3 (0.0-0.1) 12/03/21 01:09 Seg Neutrophils % 64.5 % (40.0-70.0) 12/03/21 01:09 Seg Neutrophils # 5.5 K/mm3 (1.8-7.7) 12/03/21 01:09 PT 14.5 Sec. (12.2-14.9) 12/04/21 00:48 INR 0.99 (0.87-1.13) 12/04/21 00:48 APTT 31.1 Sec. (24.2-36.6) 12/04/21 00:48 Sodium 139 mmol/L (137-145) 12/03/21 01:09 Potassium 3.9 mmol/L (3.6-5.0) 12/03/21 01:09 Chloride 100.9 mmol/L (98-107) 12/03/21 01:09 Carbon Dioxide 23 mmol/L (22-30) 12/03/21 01:09 Anion Gap 19 mmol/L 12/03/21 01:09 BUN 12 mg/dL (9-20) 12/03/21 01:09 Creatinine 0.7 mg/dL (0.8-1.3) L 12/04/21 00:48 Estimated GFR > 60 ml/min 12/04/21 00:48 BUN/Creatinine Ratio 13 % 12/03/21 01:09 Glucose 102 mg/dL (75-100) H 12/03/21 01:09 Hemoglobin A1c 5.0 % (4-6) 12/03/21 01:09 Calcium 9.0 mg/dL (8.4-10.2) 12/03/21 01:09 Total Bilirubin 0.30 mg/dL (0.1-1.2) 12/03/21 01:09 AST 23 units/L (5-40) 12/03/21 01:09 ALT 13 units/L (7-56) 12/03/21 01:09 Alkaline Phosphatase 144 units/L (35-129) H 12/03/21 01:09 Total Protein 6.7 g/dL (6.3-8.2) 12/03/21 01:09 Albumin 3.7 g/dL (3.9-5) L 12/03/21 01:09 Albumin/Globulin Ratio 1.2 % 12/03/21 01:09 Triglycerides 119 mg/dL (2-149) 12/03/21 01:09 Cholesterol 139 mg/dL (50-199) 12/03/21 01:09 LDL Cholesterol Direct 83 mg/dL (50-130) 12/03/21 01:09 HDL Cholesterol 36 mg/dL (40-59) L 12/03/21 01:09 Cholesterol/HDL Ratio 3.86 % 12/03/21 01:09 TSH 4.710 mlU/mL (0.270-4.200) H 12/03/21 01:09 Last Vital Signs Temp 97.4 F L 12/03/21 19:17 Pulse 92 H 12/03/21 19:17 Resp 18 12/03/21 19:17 BP 117/74 12/03/21 19:17 Pulse Ox 97 12/03/21 19:17
[2021-12-04] MEDS: levETIRAcetam 500 MG TAB PO SCH ×2 (09:45→21:12)
[2021-12-04] MEDS: POTASSIUM CHLORIDE ER 20 MEQ TAB PO SCH (09:45)
[2021-12-04] MEDS: ASPIRIN EC 81 MG TAB PO SCH (09:45)
[2021-12-04] MEDS: MULTIVITAMINS,THER W-MINERALS TAB PO SCH (09:46)
[2021-12-04] MEDS: FUROSEMIDE 40 MG TAB PO SCH (09:46)
[2021-12-04] MEDS: METOPROLOL TARTRATE 25 MG TAB PO SCH ×2 (09:46→21:13)
[2021-12-04] MEDS: CITALOPRAM 10 MG TAB PO SCH (09:46)
[2021-12-04 10:04] LABS: Iron 38 ug/dL (49-181); Total Iron Binding Capacity 235 mcg/dL (250-450)
[2021-12-04] MEDS: APIXABAN 5 MG TAB PO SCH ×2 (15:36→21:12)
[2021-12-04] MEDS: AMIODARONE 200 MG TAB PO SCH (15:36)
[2021-12-04] MEDS: MELATONIN 5 MG TAB PO SCH (21:13)
[2021-12-04] MEDS ORDERED: traZODone 50 MG TAB PO SCH (22:00)
[2021-12-04] MEDS ORDERED: MELATONIN 5 MG TAB PO SCH (22:00)
--- NOTE | 2021-12-05 08:31 | Progress Note ---
Subjective Date of service: 12/05/21 Principal diagnosis: Major Depressive Disorder Subjective Comment: The patient was seen today. He says "I'm alive" when asking how he felt. He denies SI/HI or hallucinations of any kind. He says he did not sleep well. REVIEW OF SYSTEMS Constitutional: Negative for weight loss ENT: Negative for stridor Respiratory: Negative for cough or hemoptysis All other systems reviewed and are negative MENTAL STATUS EXAMINATION General Appearance and Behavior: Age appropriate, wearing appropriate clothes, cooperative, polite with questioning, good eye contact Cooperation: cooperative Psychomotor Behavior: Psychomotor normal Mood: Depressed Affect and affective range: congruent with stated affect Thought Process: Goal directed Thought Content: Reality oriented Speech: Normal volume, Regular rate and rhythm Suicidal Ideation: Denies Homicidal Ideation: Denies Hallucination: Denies Delusions:Denies Impulse Control: Limited Insight and Judgment: Limited Memory: Intact Attention:attentive Orientation: Alert and oriented Diagnoses: Major depressive disorder Treatment Plan Patient admitted for inpatient psychiatric evaluation, medication adjustment and close monitoring The patient's behavior, mood, sleep and appetite will be closely monitored. Patient enrolled in individual and group therapeutic sessions and encouraged to attend. Patient provided with a safe and structured environment. Patient's physical health needs will be addressed by the Hospitalist. Hospitalist Consulted Labs including CBC, CMP, Lipid profile and Hemoglobin A1C levels ordered for baseline reference Social Assessment will be completed and the Business Account Executive will work with patient and family to ensure a suitable and safe disposition Medication adjustment will be made as clinically indicated Increased Trazodone 75mg po qhs Usual Wellness [facility]/Preservation: - Start Trazodone 50 mg po QHS & 50 mg po QHS PRN between 10 PM & 2 AM for insomnia - Start Melatonin 5 mg po QHS to promote circadian rhythm The patient agreed on the treatment plan, understood the risk, benefit, alternative treatment, potential consequence of no treatment, and gave informed consent. Estimated days: 7 Post hospital care: primary care provider, psychiatric provider Case staffed with Dr. Mcclelland Medications and Allergies Allergies Allergy/AdvReac Type Severity Reaction Status Date / Time naproxen Allergy Intermediate Shortness Verified 12/03/21 14:38 of Breath Home Medications Medication Instructions Recorded Confirmed Last Taken Type Amiodarone HCl [Pacerone] 200 mg PO DAILY 12/03/21 12/03/21 Unknown History Apixaban [Eliquis] 5 mg PO BID 12/03/21 12/03/21 Unknown History Aspirin EC [Halfprin EC] 81 mg PO QDAY 12/03/21 12/04/21 Unknown History Atorvastatin [Lipitor Tab] 80 mg PO QHS 12/04/21 12/04/21 Unknown History Citalopram [celeXA] 10 mg PO QDAY 12/04/21 12/04/21 Unknown History Furosemide [Lasix TAB] 40 mg PO QDAY 12/04/21 12/04/21 Unknown History Melatonin [Melatonin 5MG TAB] 5 mg PO 12/04/21 12/04/21 Unknown History Metoprolol [Lopressor] 25 mg PO BID 12/04/21 12/04/21 Unknown History Multivitamin/Iron/Folic Acid 1 each PO DAILY 12/04/21 12/04/21 Unknown History [Multivitamin with Iron Tablet] Potassium Chloride [K-Dur] 20 meq PO QDAY 12/04/21 12/04/21 Unknown History levETIRAcetam [Keppra TAB] 1,000 mg PO BID 12/04/21 12/04/21 Unknown History Active Meds: Active Medications Amiodarone HCl (Amiodarone 200 Mg Tab) 200 mg PO DAILY [facility] Last Admin: 12/04/21 15:36 Dose: 200 mg Apixaban (Apixaban 5 Mg Tab) 5 mg PO Q12HR [facility]; Protocol Last Admin: 12/04/21 21:12 Dose: 5 mg Aspirin (Aspirin Ec 81 Mg Tab) 81 mg PO QDAY [facility] Last Admin: 12/04/21 09:45 Dose: 81 mg Atorvastatin Calcium (Atorvastatin 40 Mg Tab) 80 mg PO QHS [facility] Last Admin: 12/04/21 21:12 Dose: 80 mg Citalopram Hydrobromide (Citalopram 10 Mg Tab) 10 mg PO QDAY [facility] Last Admin: 12/04/21 09:46 Dose: 10 mg Furosemide (Furosemide 40 Mg Tab) 40 mg PO QDAY [facility] Last Admin: 12/04/21 09:46 Dose: 40 mg Levetiracetam (Levetiracetam 500 Mg Tab) 1,000 mg PO BID [facility] Last Admin: 12/04/21 21:12 Dose: 1,000 mg Melatonin (Melatonin 5 Mg Tab) 10 mg PO QHS [facility] Last Admin: 12/04/21 21:13 Dose: 10 mg Metoprolol Tartrate (Metoprolol Tartrate 25 Mg Tab) 25 mg PO BID [facility] Last Admin: 12/04/21 21:13 Dose: 25 mg Multivitamins/Minerals (Multivitamins,Ther W-Minerals Tab) 1 each PO QDAY [facility] Last Admin: 12/04/21 09:46 Dose: 1 each Potassium Chloride (Potassium Chloride Er 20 Meq Tab) 20 meq PO QDAY [facility] Last Admin: 12/04/21 09:45 Dose: 20 meq Trazodone HCl (Trazodone 50 Mg Tab) 50 mg PO QHS [facility] Last Admin: 12/04/21 21:11 Dose: 50 mg Results - Results Labs/Vitals: Laboratory Last Values WBC 8.0 K/mm3 (4.5-11.0) 12/04/21 00:48 RBC 3.30 M/mm3 (3.65-5.03) L 12/04/21 00:48 Hgb 9.1 gm/dl (11.8-15.2) L 12/04/21 00:48 Hct 28.0 % (35.5-45.6) L 12/04/21 00:48 MCV 85 fl (84-94) 12/04/21 00:48 MCH 28 pg (28-32) 12/04/21 00:48 MCHC 32 % (32-34) 12/04/21 00:48 RDW 16.8 % (13.2-15.2) H 12/04/21 00:48 Plt Count 323 K/mm3 (140-440) 12/04/21 00:48 Lymph % (Auto) 23.3 % (13.4-35.0) 12/03/21 01:09 [place] % (Auto) 8.8 % (0.0-7.3) H 12/03/21 01:09 Eos % (Auto) 2.8 % (0.0-4.3) 12/03/21 01:09 Baso % (Auto) 0.6 % (0.0-1.8) 12/03/21 01:09 Lymph # (Auto) 2.0 K/mm3 (1.2-5.4) 12/03/21 01:09 [place] # (Auto) 0.7 K/mm3 (0.0-0.8) 12/03/21 01:09 Eos # (Auto) 0.2 K/mm3 (0.0-0.4) 12/03/21 01:09 Baso # (Auto) 0.0 K/mm3 (0.0-0.1) 12/03/21 01:09 Seg Neutrophils % 64.5 % (40.0-70.0) 12/03/21 01:09 Seg Neutrophils # 5.5 K/mm3 (1.8-7.7) 12/03/21 01:09 PT 14.5 Sec. (12.2-14.9) 12/04/21 00:48 INR 0.99 (0.87-1.13) 12/04/21 00:48 APTT 31.1 Sec. (24.2-36.6) 12/04/21 00:48 Sodium 139 mmol/L (137-145) 12/03/21 01:09 Potassium 3.9 mmol/L (3.6-5.0) 12/03/21 01:09 Chloride 100.9 mmol/L (98-107) 12/03/21 01:09 Carbon Dioxide 23 mmol/L (22-30) 12/03/21 01:09 Anion Gap 19 mmol/L 12/03/21 01:09 BUN 12 mg/dL (9-20) 12/03/21 01:09 Creatinine 0.7 mg/dL (0.8-1.3) L 12/04/21 00:48 Estimated GFR > 60 ml/min 12/04/21 00:48 BUN/Creatinine Ratio 13 % 12/03/21 01:09 Glucose 102 mg/dL (75-100) H 12/03/21 01:09 Hemoglobin A1c 5.0 % (4-6) 12/03/21 01:09 Calcium 9.0 mg/dL (8.4-10.2) 12/03/21 01:09 Iron 38 ug/dL (49-181) L 12/04/21 09:14 TIBC 235 mcg/dL (250-450) L 12/04/21 09:14 Ferritin 189.9 ng/mL (30.0-300.0) 12/04/21 09:14 Total Bilirubin 0.30 mg/dL (0.1-1.2) 12/03/21 01:09 AST 23 units/L (5-40) 12/03/21 01:09 ALT 13 units/L (7-56) 12/03/21 01:09 Alkaline Phosphatase 144 units/L (35-129) H 12/03/21 01:09 Total Protein 6.7 g/dL (6.3-8.2) 12/03/21 01:09 Albumin 3.7 g/dL (3.9-5) L 12/03/21 01:09 Albumin/Globulin Ratio 1.2 % 12/03/21 01:09 Triglycerides 119 mg/dL (2-149) 12/03/21 01:09 Cholesterol 139 mg/dL (50-199) 12/03/21 01:09 LDL Cholesterol Direct 83 mg/dL (50-130) 12/03/21 01:09 HDL Cholesterol 36 mg/dL (40-59) L 12/03/21 01:09 Cholesterol/HDL Ratio 3.86 % 12/03/21 01:09 TSH 4.710 mlU/mL (0.270-4.200) H 12/03/21 01:09 Last Vital Signs Temp 97.4 F L 12/04/21 19:08 Pulse 109 H 12/04/21 21:13 Resp 18 12/04/21 19:08 BP 111/72 12/04/21 21:13 Pulse Ox 99 12/04/21 19:08
[2021-12-05] MEDS: FUROSEMIDE 40 MG TAB PO SCH ×2 (09:12→10:41)
[2021-12-05] MEDS: CITALOPRAM 10 MG TAB PO SCH (09:13)
[2021-12-05] MEDS: POTASSIUM CHLORIDE ER 20 MEQ TAB PO SCH (09:13)
[2021-12-05] MEDS: MULTIVITAMINS,THER W-MINERALS TAB PO SCH (09:13)
[2021-12-05] MEDS: levETIRAcetam 500 MG TAB PO SCH ×2 (09:14→21:50)
[2021-12-05] MEDS: METOPROLOL TARTRATE 25 MG TAB PO SCH ×3 (09:14→21:50)
[2021-12-05] MEDS: ASPIRIN EC 81 MG TAB PO SCH (09:14)
[2021-12-05] MEDS: AMIODARONE 200 MG TAB PO SCH (09:18)
[2021-12-05] MEDS: APIXABAN 5 MG TAB PO SCH ×2 (09:18→21:51)
--- NOTE | 2021-12-05 13:54 | Progress Note ---
Assessment and Plan Assessment and plan: The patient is a 56 years old male with history of polysubstance abuse who was admitted for suicidal ideation. Per note, the has suicidal ideation because he is going blind and unable to provide for his family. #Suicidal ideation Management per primary #Mild intermittent asthma Continue albuterol nebs every 4 hours as needed #Normocytic anemia Hemoglobin 9.4 Iron 38, TIBC 235, ferritin 190. Starting ferrous sulfate 325 mg daily. Transfuse if hemoglobin <7 or patient becomes symptomatic. #Polysubstance dependence -Patient engages in the following substances: unknown -Counseled patient about the importance of cessation of substance abuse. Offered resources to help with quitting. Patient expresses understanding. -Time: +15 mins #Advanced care planning -Disease education conducted, care plan discussed, diagnoses discussed, prognosis discussed, and patient acknowledges understanding with care plan -Time: +30 min Disposition Plan: Continue medical management Total Time Spent with Patient (Minutes): 45 min History Interval history: No acute events overnight. Hospitalist Physical - Constitutional Vitals: Temp Pulse Resp BP Pulse Ox 98.3 F 86 20 92/60 97 12/05/21 09:03 12/05/21 09:03 12/05/21 09:03 12/05/21 09:03 12/05/21 09:03 General appearance: Present: no acute distress, well-nourished - EENT Eyes: Present: PERRL, EOM intact ENT: hearing intact, clear oral mucosa, dentition normal - Neck Neck: Present: supple, normal ROM - Respiratory Respiratory effort: normal Respiratory: bilateral: CTA - Cardiovascular Heart rate: 109 Rhythm: regular Heart Sounds: Present: S1 & S2 - Extremities Extremities: no ischemia, pulses intact, pulses symmetrical, No edema, normal temperature, normal color Peripheral Pulses: within normal limits - Abdominal General gastrointestinal: soft, non-tender, non-distended, normal bowel sounds - Integumentary Integumentary: Present: clear, warm, dry - Psychiatric Psychiatric: cooperative - Neurologic Neurologic: CNII-XII intact - Allied Health Allied health notes reviewed: nursing Results - Labs CBC & Chem 7: 12/04/21 00:48 12/04/21 00:48 Labs: Laboratory Last Values WBC 8.0 K/mm3 (4.5-11.0) 12/04/21 00:48 RBC 3.30 M/mm3 (3.65-5.03) L 12/04/21 00:48 Hgb 9.1 gm/dl (11.8-15.2) L 12/04/21 00:48 Hct 28.0 % (35.5-45.6) L 12/04/21 00:48 MCV 85 fl (84-94) 12/04/21 00:48 MCH 28 pg (28-32) 12/04/21 00:48 MCHC 32 % (32-34) 12/04/21 00:48 RDW 16.8 % (13.2-15.2) H 12/04/21 00:48 Plt Count 323 K/mm3 (140-440) 12/04/21 00:48 Lymph % (Auto) 23.3 % (13.4-35.0) 12/03/21 01:09 [place] % (Auto) 8.8 % (0.0-7.3) H 12/03/21 01:09 Eos % (Auto) 2.8 % (0.0-4.3) 12/03/21 01:09 Baso % (Auto) 0.6 % (0.0-1.8) 12/03/21 01:09 Lymph # (Auto) 2.0 K/mm3 (1.2-5.4) 12/03/21 01:09 [place] # (Auto) 0.7 K/mm3 (0.0-0.8) 12/03/21 01:09 Eos # (Auto) 0.2 K/mm3 (0.0-0.4) 12/03/21 01:09 Baso # (Auto) 0.0 K/mm3 (0.0-0.1) 12/03/21 01:09 Seg Neutrophils % 64.5 % (40.0-70.0) 12/03/21 01:09 Seg Neutrophils # 5.5 K/mm3 (1.8-7.7) 12/03/21 01:09 PT 14.5 Sec. (12.2-14.9) 12/04/21 00:48 INR 0.99 (0.87-1.13) 12/04/21 00:48 APTT 31.1 Sec. (24.2-36.6) 12/04/21 00:48 Sodium 139 mmol/L (137-145) 12/03/21 01:09 Potassium 3.9 mmol/L (3.6-5.0) 12/03/21 01:09 Chloride 100.9 mmol/L (98-107) 12/03/21 01:09 Carbon Dioxide 23 mmol/L (22-30) 12/03/21 01:09 Anion Gap 19 mmol/L 12/03/21 01:09 BUN 12 mg/dL (9-20) 12/03/21 01:09 Creatinine 0.7 mg/dL (0.8-1.3) L 12/04/21 00:48 Estimated GFR > 60 ml/min 12/04/21 00:48 BUN/Creatinine Ratio 13 % 12/03/21 01:09 Glucose 102 mg/dL (75-100) H 12/03/21 01:09 Hemoglobin A1c 5.0 % (4-6) 12/03/21 01:09 Calcium 9.0 mg/dL (8.4-10.2) 12/03/21 01:09 Iron 38 ug/dL (49-181) L 12/04/21 09:14 TIBC 235 mcg/dL (250-450) L 12/04/21 09:14 Ferritin 189.9 ng/mL (30.0-300.0) 12/04/21 09:14 Total Bilirubin 0.30 mg/dL (0.1-1.2) 12/03/21 01:09 AST 23 units/L (5-40) 12/03/21 01:09 ALT 13 units/L (7-56) 12/03/21 01:09 Alkaline Phosphatase 144 units/L (35-129) H 12/03/21 01:09 Total Protein 6.7 g/dL (6.3-8.2) 12/03/21 01:09 Albumin 3.7 g/dL (3.9-5) L 12/03/21 01:09 Albumin/Globulin Ratio 1.2 % 12/03/21 01:09 Triglycerides 119 mg/dL (2-149) 12/03/21 01:09 Cholesterol 139 mg/dL (50-199) 12/03/21 01:09 LDL Cholesterol Direct 83 mg/dL (50-130) 12/03/21 01:09 HDL Cholesterol 36 mg/dL (40-59) L 12/03/21 01:09 Cholesterol/HDL Ratio 3.86 % 12/03/21 01:09 TSH 4.710 mlU/mL (0.270-4.200) H 12/03/21 01:09 Kurtz/IV: Voiding Method Toilet Active Medications - Current Medications Current Medications: Generic Name Dose Route Start Last Admin Trade Name Freq PRN Reason Stop Dose Admin Amiodarone HCl 200 mg 12/04/21 10:00 12/05/21 09:18 Amiodarone 200 Mg Tab PO 200 mg DAILY LASHAY Administration Apixaban 5 mg 12/04/21 10:00 12/05/21 09:18 Apixaban 5 Mg Tab PO 5 mg Q12HR LASHAY Administration Protocol Aspirin 81 mg 12/04/21 10:00 12/05/21 09:14 Aspirin Ec 81 Mg Tab PO 81 mg QDAY [facility] Administration Atorvastatin Calcium 80 mg 12/04/21 22:00 12/04/21 21:12 Atorvastatin 40 Mg Tab PO 80 mg QHS [facility] Administration Citalopram Hydrobromide 10 mg 12/04/21 10:00 12/05/21 09:13 Citalopram 10 Mg Tab PO 10 mg QDAY [facility] Administration Furosemide 40 mg 12/04/21 10:00 12/05/21 10:41 Furosemide 40 Mg Tab PO Not Given QDAY [facility] Levetiracetam 1,000 mg 12/03/21 01:00 12/05/21 09:14 Levetiracetam 500 Mg Tab PO 1,000 mg BID [facility] Administration Melatonin 10 mg 12/04/21 22:00 12/04/21 21:13 Melatonin 5 Mg Tab PO 10 mg QHS [facility] Administration Metoprolol Tartrate 50 mg 12/05/21 10:00 12/05/21 10:42 Metoprolol Tartrate 25 Mg Tab PO Not Given BID [facility] Multivitamins/Minerals 1 each 12/04/21 10:00 12/05/21 09:13 Multivitamins,Ther W-Minerals Tab PO 1 each QDAY [facility] Administration Potassium Chloride 20 meq 12/04/21 10:00 12/05/21 09:13 Potassium Chloride Er 20 Meq Tab PO 20 meq QDAY [facility] Administration Trazodone HCl 75 mg 12/05/21 22:00 Trazodone 50 Mg Tab PO QHS [facility] Nutrition/Malnutrition Assess - Dietary Evaluation Nutrition/Malnutrition Findings: Nutrition Notes Start: 12/03/21 19:20 Freq: Status: Active Protocol: Document 12/03/21 19:20 KAYLIN (Rec: 12/03/21 19:35 KAYLIN [id number]) Nutrition Notes Need for Assessment generated from: MD Order Initial or Follow up Assessment Current Diagnosis Hypertension,Stroke, Hyperlipidemia Other Pertinent Diagnosis Suicidal Ideation, Polysubstance Abuse, Anemia, Asthma, Seizure, ... Current Diet Regular Diet (since B 12/02). Labs/Tests 12/03: Glu 102. Pertinent Medications 12/03: Nutritionally unremarkable. Height 6 ft Weight 81.9 kg [place] Body Weight (kg) 80.90 BMI 24.5 Intake Prior to Admission Good Weight change and time frame Pt denies having loss body weight [employer] ASSIST[employer]. Weight Status Appropriate Subjective/Other Information RD consult for dietary supplementation assessment. Pt's PO intake of meals has been Good (100%) and well tolerated, according to ADL notes. Pt is on Room Air, O2 saturation @ 97%, according to Vital Signs notes. I will not prescribe dietary supplementatin since it will not be usefull to compensate for poor or insufficient PO intake of meals. Percent of energy/protein needs met: Prescribed Regular Diet provides for energy/protein needs (2,289 Kcal/89 g) during LOS. Burn Absent Trauma Absent GI Symptoms None Food Allergy No Skin Integrity/Comment Assessment WNL. Current % PO Good (75-100%) Minimum of two criteria No Fluid Accumulation N/A Reduced Pmo Lead Strength N/A (non-severe) Protein-Calorie Malnutrition N\A #1 Nutrition Diagnosis No nutrition diagnosis at this time Is patient on ventilator? No Is Patient Ambulatory and/or Out of Bed Yes REE-([facility]-ambulatory/OOB) [ 2180.100 NUTR.[id number]] Calculation Used for Recommendations [facility] Additional Notes Protein: 0.8-1 g/Kg ABW; 66-82 g/day. Fluids: 1 ml/Kcal, or as per MD. Nutrition Intervention Change Diet Order: Continue Regular Diet. Follow-Up By: 12/10/21 Additional Comments Continue monitoring food tolerance, %PO intake of meals , and BM.
[2021-12-05] MEDS: MELATONIN 5 MG TAB PO SCH (21:51)
[2021-12-05] MEDS: traZODone 50 MG TAB PO SCH (21:52)
[2021-12-06 07:54] LABS: Hemoglobin 9.4 gm/dl (11.8-15.2); Mean Corpuscular HGB Conc 31 % (32-34); Mean Corpuscular Volume 87 fl (84-94); Platelet Count 339 K/mm3 (140-440); Red Blood Count 3.45 M/mm3 (3.65-5.03); Red Cell Distribution Width 17.2 % (13.2-15.2)
[2021-12-06] MEDS: MULTIVITAMINS,THER W-MINERALS TAB PO SCH (09:04)
[2021-12-06] MEDS: levETIRAcetam 500 MG TAB PO SCH ×2 (09:04→21:23)
[2021-12-06] MEDS: FERROUS SULFATE 325 MG TAB PO SCH (09:04)
[2021-12-06] MEDS: POTASSIUM CHLORIDE ER 20 MEQ TAB PO SCH (09:04)
[2021-12-06] MEDS: AMIODARONE 200 MG TAB PO SCH (09:04)
--- NOTE | 2021-12-06 09:04 | Progress Note ---
Assessment and Plan Assessment and plan: The patient is a 56 years old male with history of polysubstance abuse who was admitted for suicidal ideation. Per note, the has suicidal ideation because he is going blind and unable to provide for his family. #Suicidal ideation Management per primary #Mild intermittent asthma Continue albuterol nebs every 4 hours as needed #Normocytic anemia Hemoglobin 9.4 Iron 38, TIBC 235, ferritin 190. Starting ferrous sulfate 325 mg daily. Transfuse if hemoglobin <7 or patient becomes symptomatic. #Polysubstance dependence -Patient engages in the following substances: unknown -Counseled patient about the importance of cessation of substance abuse. Offered resources to help with quitting. Patient expresses understanding. -Time: +15 mins #Advanced care planning -Disease education conducted, care plan discussed, diagnoses discussed, prognosis discussed, and patient acknowledges understanding with care plan -Time: +30 min Thank you for this interesting consult. Hospitalist service will be signing off today. Please all hesitate to reach out should any questions arise. Disposition Plan: To the medical management Total Time Spent with Patient (Minutes): 30 min History Interval history: No acute events overnight. Hospitalist Physical - Constitutional Vitals: Temp Pulse Resp BP Pulse Ox 97.5 F L 82 18 89/61 97 12/06/21 08:47 12/06/21 08:47 12/06/21 08:47 12/06/21 08:47 12/06/21 08:47 General appearance: Present: no acute distress, well-nourished - EENT Eyes: Present: PERRL, EOM intact ENT: hearing intact, clear oral mucosa, dentition normal - Neck Neck: Present: supple, normal ROM - Respiratory Respiratory effort: normal Respiratory: bilateral: CTA - Cardiovascular Rhythm: regular Heart Sounds: Present: S1 & S2 - Extremities Extremities: no ischemia, pulses intact, pulses symmetrical, No edema, normal temperature, normal color, Full ROM Peripheral Pulses: within normal limits - Abdominal General gastrointestinal: soft, non-tender, non-distended, normal bowel sounds - Integumentary Integumentary: Present: clear, warm, dry - Psychiatric Psychiatric: appropriate mood/affect, cooperative - Neurologic Neurologic: CNII-XII intact - Allied Health Allied health notes reviewed: nursing Results - Labs CBC & Chem 7: 12/06/21 07:20 12/04/21 00:48 Labs: Laboratory Last Values WBC 9.3 K/mm3 (4.5-11.0) 12/06/21 07:20 RBC 3.45 M/mm3 (3.65-5.03) L 12/06/21 07:20 Hgb 9.4 gm/dl (11.8-15.2) L 12/06/21 07:20 Hct 30.0 % (35.5-45.6) L 12/06/21 07:20 MCV 87 fl (84-94) 12/06/21 07:20 MCH 27 pg (28-32) L 12/06/21 07:20 MCHC 31 % (32-34) L 12/06/21 07:20 RDW 17.2 % (13.2-15.2) H 12/06/21 07:20 Plt Count 339 K/mm3 (140-440) 12/06/21 07:20 Lymph % (Auto) 23.3 % (13.4-35.0) 12/03/21 01:09 [place] % (Auto) 8.8 % (0.0-7.3) H 12/03/21 01:09 Eos % (Auto) 2.8 % (0.0-4.3) 12/03/21 01:09 Baso % (Auto) 0.6 % (0.0-1.8) 12/03/21 01:09 Lymph # (Auto) 2.0 K/mm3 (1.2-5.4) 12/03/21 01:09 [place] # (Auto) 0.7 K/mm3 (0.0-0.8) 12/03/21 01:09 Eos # (Auto) 0.2 K/mm3 (0.0-0.4) 12/03/21 01:09 Baso # (Auto) 0.0 K/mm3 (0.0-0.1) 12/03/21 01:09 Seg Neutrophils % 64.5 % (40.0-70.0) 12/03/21 01:09 Seg Neutrophils # 5.5 K/mm3 (1.8-7.7) 12/03/21 01:09 PT 14.5 Sec. (12.2-14.9) 12/04/21 00:48 INR 0.99 (0.87-1.13) 12/04/21 00:48 APTT 31.1 Sec. (24.2-36.6) 12/04/21 00:48 Sodium 139 mmol/L (137-145) 12/03/21 01:09 Potassium 3.9 mmol/L (3.6-5.0) 12/03/21 01:09 Chloride 100.9 mmol/L (98-107) 12/03/21 01:09 Carbon Dioxide 23 mmol/L (22-30) 12/03/21 01:09 Anion Gap 19 mmol/L 12/03/21 01:09 BUN 12 mg/dL (9-20) 12/03/21 01:09 Creatinine 0.7 mg/dL (0.8-1.3) L 12/04/21 00:48 Estimated GFR > 60 ml/min 12/04/21 00:48 BUN/Creatinine Ratio 13 % 12/03/21 01:09 Glucose 102 mg/dL (75-100) H 12/03/21 01:09 Hemoglobin A1c 5.0 % (4-6) 12/03/21 01:09 Calcium 9.0 mg/dL (8.4-10.2) 12/03/21 01:09 Iron 38 ug/dL (49-181) L 12/04/21 09:14 TIBC 235 mcg/dL (250-450) L 12/04/21 09:14 Ferritin 189.9 ng/mL (30.0-300.0) 12/04/21 09:14 Total Bilirubin 0.30 mg/dL (0.1-1.2) 12/03/21 01:09 AST 23 units/L (5-40) 12/03/21 01:09 ALT 13 units/L (7-56) 12/03/21 01:09 Alkaline Phosphatase 144 units/L (35-129) H 12/03/21 01:09 Total Protein 6.7 g/dL (6.3-8.2) 12/03/21 01:09 Albumin 3.7 g/dL (3.9-5) L 12/03/21 01:09 Albumin/Globulin Ratio 1.2 % 12/03/21 01:09 Triglycerides 119 mg/dL (2-149) 12/03/21 01:09 Cholesterol 139 mg/dL (50-199) 12/03/21 01:09 LDL Cholesterol Direct 83 mg/dL (50-130) 12/03/21 01:09 HDL Cholesterol 36 mg/dL (40-59) L 12/03/21 01:09 Cholesterol/HDL Ratio 3.86 % 12/03/21 01:09 TSH 4.710 mlU/mL (0.270-4.200) H 12/03/21 01:09 Kurtz/IV: Voiding Method Toilet Active Medications - Current Medications Current Medications: Generic Name Dose Route Start Last Admin Trade Name Freq PRN Reason Stop Dose Admin Amiodarone HCl 200 mg 12/04/21 10:00 12/05/21 09:18 Amiodarone 200 Mg Tab PO 200 mg DAILY LASHAY Administration Apixaban 5 mg 12/04/21 10:00 12/05/21 21:51 Apixaban 5 Mg Tab PO 5 mg Q12HR [facility]ASHAY Administration Protocol Aspirin 81 mg 12/04/21 10:00 12/05/21 09:14 Aspirin Ec 81 Mg Tab PO 81 mg QDAY [facility] Administration Atorvastatin Calcium 80 mg 12/04/21 22:00 12/05/21 21:51 Atorvastatin 40 Mg Tab PO 80 mg QHS [facility] Administration Citalopram Hydrobromide 10 mg 12/04/21 10:00 12/05/21 09:13 Citalopram 10 Mg Tab PO 10 mg QDAY [facility] Administration Ferrous Sulfate 325 mg 12/06/21 10:00 Ferrous Sulfate 325 Mg Tab PO QDAY [facility] Furosemide 40 mg 12/04/21 10:00 12/05/21 10:41 Furosemide 40 Mg Tab PO Not Given QDAY [facility] Levetiracetam 1,000 mg 12/03/21 01:00 12/05/21 21:50 Levetiracetam 500 Mg Tab PO 1,000 mg BID [facility] Administration Melatonin 10 mg 12/04/21 22:00 12/05/21 21:51 Melatonin 5 Mg Tab PO 10 mg QHS [facility] Administration Metoprolol Tartrate 50 mg 12/05/21 10:00 12/05/21 21:50 Metoprolol Tartrate 25 Mg Tab PO 50 mg BID [facility] Administration Multivitamins/Minerals 1 each 12/04/21 10:00 12/05/21 09:13 Multivitamins,Ther W-Minerals Tab PO 1 each QDAY [facility] Administration Potassium Chloride 20 meq 12/04/21 10:00 12/05/21 09:13 Potassium Chloride Er 20 Meq Tab PO 20 meq QDAY [facility] Administration Trazodone HCl 75 mg 12/05/21 22:00 12/05/21 21:52 Trazodone 50 Mg Tab PO 75 mg QHS [facility]ASHAY Administration Nutrition/Malnutrition Assess - Dietary Evaluation Nutrition/Malnutrition Findings: Nutrition Notes Start: 12/03/21 19:20 Freq: Status: Active Protocol: Document 12/03/21 19:20 KAYLIN (Rec: 12/03/21 19:35 KAYLIN [id number]) Nutrition Notes Need for Assessment generated from: MD Order Initial or Follow up Assessment Current Diagnosis Hypertension,Stroke, Hyperlipidemia Other Pertinent Diagnosis Suicidal Ideation, Polysubstance Abuse, Anemia, Asthma, Seizure, ... Current Diet Regular Diet (since B 12/02). Labs/Tests 12/03: Glu 102. Pertinent Medications 12/03: Nutritionally unremarkable. Height 6 ft Weight 81.9 kg [place] Body Weight (kg) 80.90 BMI 24.5 Intake Prior to Admission Good Weight change and time frame Pt denies having loss body weight [employer]. Weight Status Appropriate Subjective/Other Information RD consult for dietary supplementation assessment. Pt's PO intake of meals has been Good (100%) and well tolerated, according to ADL notes. Pt is on Room Air, O2 saturation @ 97%, according to Vital Signs notes. I will not prescribe dietary supplementatin since it will not be usefull to compensate for poor or insufficient PO intake of meals. Percent of energy/protein needs met: Prescribed Regular Diet provides for energy/protein needs (2,289 Kcal/89 g) during LOS. Burn Absent Trauma Absent GI Symptoms None Food Allergy No Skin Integrity/Comment Assessment WNL. 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 No Is Patient Ambulatory and/or Out of Bed Yes REE-([facility]-ambulatory/OOB) [ 9740.100 NUTR.[id number]] Calculation Used for Recommendations [facility] Additional Notes Protein: 0.8-1 g/Kg ABW; 66-82 g/day. Fluids: 1 ml/Kcal, or as per MD. Nutrition Intervention Change Diet Order: Continue Regular Diet. Follow-Up By: 12/10/21 Additional Comments Continue monitoring food tolerance, %PO intake of meals , and BM.
[2021-12-06] MEDS: CITALOPRAM 10 MG TAB PO SCH (09:05)
[2021-12-06] MEDS: APIXABAN 5 MG TAB PO SCH (09:05)
--- NOTE | 2021-12-06 09:05 | Progress Note ---
Subjective Date of service: 12/06/21 Principal diagnosis: Major Depressive Disorder Subjective Comment: The patient was seen today. He days he's doing okay and feels like he can go home. He denies SI/HI or hallucinations of any kind. The patient says he slept well. He will discharge home once the has set up outpatient resources to ensure continuity of the patient's mental wellness. REVIEW OF SYSTEMS Constitutional: Negative for weight loss ENT: Negative for stridor Respiratory: Negative for cough or hemoptysis All other systems reviewed and are negative MENTAL STATUS EXAMINATION General Appearance and Behavior: Age appropriate, wearing appropriate clothes, cooperative, polite with questioning, good eye contact Cooperation: cooperative Psychomotor Behavior: Psychomotor normal Mood: alright Affect and affective range: congruent with stated affect Thought Process: Goal directed Thought Content: Reality oriented Speech: Normal volume, Regular rate and rhythm Suicidal Ideation: Denies Homicidal Ideation: Denies Hallucination: Denies Delusions:Denies Impulse Control: Limited Insight and Judgment: Limited Memory: Intact Attention:attentive Orientation: Alert and oriented Diagnoses: Major depressive disorder Treatment Plan Patient admitted for inpatient psychiatric evaluation, medication adjustment and close monitoring The patient's behavior, mood, sleep and appetite will be closely monitored. Patient enrolled in individual and group therapeutic sessions and encouraged to attend. Patient provided with a safe and structured environment. Patient's physical health needs will be addressed by the Hospitalist. Hospitalist Consulted Labs including CBC, CMP, Lipid profile and Hemoglobin A1C levels ordered for baseline reference Social Assessment will be completed and the Veterinarian Assistant will work with patient and family to ensure a suitable and safe disposition Medication adjustment will be made as clinically indicated No changes made today Usual Wellness Nondenominational/Preservation: - Start Trazodone 50 mg po QHS & 50 mg po QHS PRN between 10 PM & 2 AM for insomnia - Start Melatonin 5 mg po QHS to promote circadian rhythm The patient agreed on the treatment plan, understood the risk, benefit, alternative treatment, potential consequence of no treatment, and gave informed consent. Estimated days: 7 Post hospital care: primary care provider, psychiatric provider Case staffed with Dr. Mcclelland Medications and Allergies Allergies Allergy/AdvReac Type Severity Reaction Status Date / Time naproxen Allergy Intermediate Shortness Verified 12/03/21 14:38 of Breath Home Medications Medication Instructions Recorded Confirmed Last Taken Type Amiodarone HCl [Pacerone] 200 mg PO DAILY 12/03/21 12/03/21 Unknown History Apixaban [Eliquis] 5 mg PO BID 12/03/21 12/03/21 Unknown History Aspirin EC [Halfprin EC] 81 mg PO QDAY 12/03/21 12/04/21 Unknown History Atorvastatin [Lipitor Tab] 80 mg PO QHS 12/04/21 12/04/21 Unknown History Citalopram [celeXA] 10 mg PO QDAY 12/04/21 12/04/21 Unknown History Furosemide [Lasix TAB] 40 mg PO QDAY 12/04/21 12/04/21 Unknown History Melatonin [Melatonin 5MG TAB] 5 mg PO HS 12/04/21 12/04/21 Unknown History Metoprolol [Lopressor] 25 mg PO BID 12/04/21 12/04/21 Unknown History Multivitamin/Iron/Folic Acid 1 each PO DAILY 12/04/21 12/04/21 Unknown History [Multivitamin with Iron Tablet] Potassium Chloride [K-Dur] 20 meq PO QDAY 12/04/21 12/04/21 Unknown History levETIRAcetam [Keppra TAB] 1,000 mg PO BID 12/04/21 12/04/21 Unknown History Active Meds: Active Medications Amiodarone HCl (Amiodarone 200 Mg Tab) 200 mg PO DAILY [facility] Last Admin: 12/05/21 09:18 Dose: 200 mg Apixaban (Apixaban 5 Mg Tab) 5 mg PO Q12HR [facility]; Protocol Last Admin: 12/05/21 21:51 Dose: 5 mg Aspirin (Aspirin Ec 81 Mg Tab) 81 mg PO QDAY [facility] Last Admin: 12/05/21 09:14 Dose: 81 mg Atorvastatin Calcium (Atorvastatin 40 Mg Tab) 80 mg PO QHS [facility] Last Admin: 12/05/21 21:51 Dose: 80 mg Citalopram Hydrobromide (Citalopram 10 Mg Tab) 10 mg PO QDAY [facility] Last Admin: 12/05/21 09:13 Dose: 10 mg Ferrous Sulfate (Ferrous Sulfate 325 Mg Tab) 325 mg PO QDAY [facility] Furosemide (Furosemide 40 Mg Tab) 40 mg PO QDAY [facility] Last Admin: 12/05/21 10:41 Dose: Not Given Levetiracetam (Levetiracetam 500 Mg Tab) 1,000 mg PO BID [facility] Last Admin: 12/05/21 21:50 Dose: 1,000 mg Melatonin (Melatonin 5 Mg Tab) 10 mg PO QHS [facility] Last Admin: 12/05/21 21:51 Dose: 10 mg Metoprolol Tartrate (Metoprolol Tartrate 25 Mg Tab) 50 mg PO BID [facility] Last Admin: 12/05/21 21:50 Dose: 50 mg Multivitamins/Minerals (Multivitamins,Ther W-Minerals Tab) 1 each PO QDAY [facility] Last Admin: 12/05/21 09:13 Dose: 1 each Potassium Chloride (Potassium Chloride Er 20 Meq Tab) 20 meq PO QDAY [facility] Last Admin: 12/05/21 09:13 Dose: 20 meq Trazodone HCl (Trazodone 50 Mg Tab) 75 mg PO QHS [facility] Last Admin: 12/05/21 21:52 Dose: 75 mg Results - Results Labs/Vitals: Laboratory Last Values WBC 9.3 K/mm3 (4.5-11.0) 12/06/21 07:20 RBC 3.45 M/mm3 (3.65-5.03) L 12/06/21 07:20 Hgb 9.4 gm/dl (11.8-15.2) L 12/06/21 07:20 Hct 30.0 % (35.5-45.6) L 12/06/21 07:20 MCV 87 fl (84-94) 12/06/21 07:20 MCH 27 pg (28-32) L 12/06/21 07:20 MCHC 31 % (32-34) L 12/06/21 07:20 RDW 17.2 % (13.2-15.2) H 12/06/21 07:20 Plt Count 339 K/mm3 (140-440) 12/06/21 07:20 Lymph % (Auto) 23.3 % (13.4-35.0) 12/03/21 01:09 [place] % (Auto) 8.8 % (0.0-7.3) H 12/03/21 01:09 Eos % (Auto) 2.8 % (0.0-4.3) 12/03/21 01:09 Baso % (Auto) 0.6 % (0.0-1.8) 12/03/21 01:09 Lymph # (Auto) 2.0 K/mm3 (1.2-5.4) 12/03/21 01:09 [place] # (Auto) 0.7 K/mm3 (0.0-0.8) 12/03/21 01:09 Eos # (Auto) 0.2 K/mm3 (0.0-0.4) 12/03/21 01:09 Baso # (Auto) 0.0 K/mm3 (0.0-0.1) 12/03/21 01:09 Seg Neutrophils % 64.5 % (40.0-70.0) 12/03/21 01:09 Seg Neutrophils # 5.5 K/mm3 (1.8-7.7) 12/03/21 01:09 PT 14.5 Sec. (12.2-14.9) 12/04/21 00:48 INR 0.99 (0.87-1.13) 12/04/21 00:48 APTT 31.1 Sec. (24.2-36.6) 12/04/21 00:48 Sodium 139 mmol/L (137-145) 12/03/21 01:09 Potassium 3.9 mmol/L (3.6-5.0) 12/03/21 01:09 Chloride 100.9 mmol/L (98-107) 12/03/21 01:09 Carbon Dioxide 23 mmol/L (22-30) 12/03/21 01:09 Anion Gap 19 mmol/L 12/03/21 01:09 BUN 12 mg/dL (9-20) 12/03/21 01:09 Creatinine 0.7 mg/dL (0.8-1.3) L 12/04/21 00:48 Estimated GFR > 60 ml/min 12/04/21 00:48 BUN/Creatinine Ratio 13 % 12/03/21 01:09 Glucose 102 mg/dL (75-100) H 12/03/21 01:09 Hemoglobin A1c 5.0 % (4-6) 12/03/21 01:09 Calcium 9.0 mg/dL (8.4-10.2) 12/03/21 01:09 Iron 38 ug/dL (49-181) L 12/04/21 09:14 TIBC 235 mcg/dL (250-450) L 12/04/21 09:14 Ferritin 189.9 ng/mL (30.0-300.0) 12/04/21 09:14 Total Bilirubin 0.30 mg/dL (0.1-1.2) 12/03/21 01:09 AST 23 units/L (5-40) 12/03/21 01:09 ALT 13 units/L (7-56) 12/03/21 01:09 Alkaline Phosphatase 144 units/L (35-129) H 12/03/21 01:09 Total Protein 6.7 g/dL (6.3-8.2) 12/03/21 01:09 Albumin 3.7 g/dL (3.9-5) L 12/03/21 01:09 Albumin/Globulin Ratio 1.2 % 12/03/21 01:09 Triglycerides 119 mg/dL (2-149) 12/03/21 01:09 Cholesterol 139 mg/dL (50-199) 12/03/21 01:09 LDL Cholesterol Direct 83 mg/dL (50-130) 12/03/21 01:09 HDL Cholesterol 36 mg/dL (40-59) L 12/03/21 01:09 Cholesterol/HDL Ratio 3.86 % 12/03/21 01:09 TSH 4.710 mlU/mL (0.270-4.200) H 12/03/21 01:09 Last Vital Signs Temp 97.5 F L 12/06/21 08:47 Pulse 82 12/06/21 08:47 Resp 18 12/06/21 08:47 BP 89/61 12/06/21 08:47 Pulse Ox 97 12/06/21 08:47
[2021-12-06] MEDS: ASPIRIN EC 81 MG TAB PO SCH (09:06)
[2021-12-06] MEDS: FUROSEMIDE 40 MG TAB PO SCH (10:00)
[2021-12-06] MEDS: METOPROLOL TARTRATE 25 MG TAB PO SCH ×2 (10:00→21:24)
[2021-12-06] MEDS: traZODone 50 MG TAB PO SCH (21:22)
[2021-12-06] MEDS: MELATONIN 5 MG TAB PO SCH (21:23)
[2021-12-06] MEDS: APIXABAN 2.5 MG TAB PO SCH (21:50)
--- NOTE | 2021-12-07 08:57 | Progress Note ---
Subjective Date of service: 12/07/21 Principal diagnosis: Major Depressive Disorder Subjective Comment: The patient was seen today. He is eating breakfast. He greats me with good morning. He says he feels okay. The patient says "as long as I can wake up alive, I'm good." He denies SI/HI or hallucinations. REVIEW OF SYSTEMS Constitutional: Negative for weight loss ENT: Negative for stridor Respiratory: Negative for cough or hemoptysis All other systems reviewed and are negative MENTAL STATUS EXAMINATION General Appearance and Behavior: Age appropriate, wearing appropriate clothes, cooperative, polite with questioning, good eye contact Cooperation: cooperative Psychomotor Behavior: Psychomotor normal Mood: alright Affect and affective range: congruent with stated affect Thought Process: Goal directed Thought Content: Reality oriented Speech: Normal volume, Regular rate and rhythm Suicidal Ideation: Denies Homicidal Ideation: Denies Hallucination: Denies Delusions:Denies Impulse Control: Limited Insight and Judgment: Limited Memory: Intact Attention:attentive Orientation: Alert and oriented Diagnoses: Major depressive disorder Treatment Plan Patient admitted for inpatient psychiatric evaluation, medication adjustment and close monitoring The patient's behavior, mood, sleep and appetite will be closely monitored. Patient enrolled in individual and group therapeutic sessions and encouraged to attend. Patient provided with a safe and structured environment. Patient's physical health needs will be addressed by the Hospitalist. Hospitalist Consulted Labs including CBC, CMP, Lipid profile and Hemoglobin A1C levels ordered for baseline reference Social Assessment will be completed and the Craft Coordinator will work with patient and family to ensure a suitable and safe disposition Medication adjustment will be made as clinically indicated No changes made today Usual Wellness Mandaeism/Preservation: - Start Trazodone 50 mg po QHS & 50 mg po QHS PRN between 10 PM & 2 AM for insomnia - Start Melatonin 5 mg po QHS to promote circadian rhythm The patient agreed on the treatment plan, understood the risk, benefit, alternative treatment, potential consequence of no treatment, and gave informed consent. Estimated days: 7 Post hospital care: primary care provider, psychiatric provider Case staffed with Dr. Mcclelland Medications and Allergies Allergies Allergy/AdvReac Type Severity Reaction Status Date / Time naproxen Allergy Intermediate Shortness Verified 12/03/21 14:38 of Breath Home Medications Medication Instructions Recorded Confirmed Last Taken Type Amiodarone HCl [Pacerone] 200 mg PO DAILY 12/03/21 12/03/21 Unknown History Apixaban [Eliquis] 5 mg PO BID 12/03/21 12/03/21 Unknown History Aspirin EC [Halfprin EC] 81 mg PO QDAY 12/03/21 12/04/21 Unknown History Atorvastatin [Lipitor Tab] 80 mg PO QHS 12/04/21 12/04/21 Unknown History Citalopram [celeXA] 10 mg PO QDAY 12/04/21 12/04/21 Unknown History Furosemide [Lasix TAB] 40 mg PO QDAY 12/04/21 12/04/21 Unknown History Melatonin [Melatonin 5MG TAB] 5 mg PO HS 12/04/21 12/04/21 Unknown History Metoprolol [Lopressor] 25 mg PO BID 12/04/21 12/04/21 Unknown History Multivitamin/Iron/Folic Acid 1 each PO DAILY 12/04/21 12/04/21 Unknown History [Multivitamin with Iron Tablet] Potassium Chloride [K-Dur] 20 meq PO QDAY 12/04/21 12/04/21 Unknown History levETIRAcetam [Keppra TAB] 1,000 mg PO BID 12/04/21 12/04/21 Unknown History Active Meds: Active Medications Amiodarone HCl (Amiodarone 200 Mg Tab) 200 mg PO DAILY [facility] Last Admin: 12/06/21 09:04 Dose: 200 mg Apixaban (Apixaban 2.5 Mg Tab) 5 mg PO Q12HR [facility]; Protocol Last Admin: 12/06/21 21:50 Dose: 5 mg Aspirin (Aspirin Ec 81 Mg Tab) 81 mg PO QDAY [facility] Last Admin: 12/06/21 09:06 Dose: 81 mg Atorvastatin Calcium (Atorvastatin 40 Mg Tab) 80 mg PO QHS [facility] Last Admin: 12/06/21 21:23 Dose: 80 mg Citalopram Hydrobromide (Citalopram 10 Mg Tab) 10 mg PO QDAY [facility] Last Admin: 12/06/21 09:05 Dose: 10 mg Ferrous Sulfate (Ferrous Sulfate 325 Mg Tab) 325 mg PO QDAY [facility] Last Admin: 12/06/21 09:04 Dose: 325 mg Furosemide (Furosemide 40 Mg Tab) 40 mg PO QDAY [facility] Last Admin: 12/06/21 10:00 Dose: 40 mg Levetiracetam (Levetiracetam 500 Mg Tab) 1,000 mg PO BID [facility] Last Admin: 12/06/21 21:23 Dose: 1,000 mg Melatonin (Melatonin 5 Mg Tab) 10 mg PO QHS [facility] Last Admin: 12/06/21 21:23 Dose: 10 mg Metoprolol Tartrate (Metoprolol Tartrate 25 Mg Tab) 50 mg PO BID [facility] Last Admin: 12/06/21 21:24 Dose: 50 mg Multivitamins/Minerals (Multivitamins,Ther W-Minerals Tab) 1 each PO QDAY [facility] Last Admin: 12/06/21 09:04 Dose: 1 each Potassium Chloride (Potassium Chloride Er 20 Meq Tab) 20 meq PO QDAY [facility] Last Admin: 12/06/21 09:04 Dose: 20 meq Trazodone HCl (Trazodone 50 Mg Tab) 75 mg PO QHS [facility] Last Admin: 12/06/21 21:22 Dose: 75 mg Results - Results Labs/Vitals: Laboratory Last Values WBC 9.3 K/mm3 (4.5-11.0) 12/06/21 07:20 RBC 3.45 M/mm3 (3.65-5.03) L 12/06/21 07:20 Hgb 9.4 gm/dl (11.8-15.2) L 12/06/21 07:20 Hct 30.0 % (35.5-45.6) L 12/06/21 07:20 MCV 87 fl (84-94) 12/06/21 07:20 MCH 27 pg (28-32) L 12/06/21 07:20 MCHC 31 % (32-34) L 12/06/21 07:20 RDW 17.2 % (13.2-15.2) H 12/06/21 07:20 Plt Count 339 K/mm3 (140-440) 12/06/21 07:20 Lymph % (Auto) 23.3 % (13.4-35.0) 12/03/21 01:09 [place] % (Auto) 8.8 % (0.0-7.3) H 12/03/21 01:09 Eos % (Auto) 2.8 % (0.0-4.3) 12/03/21 01:09 Baso % (Auto) 0.6 % (0.0-1.8) 12/03/21 01:09 Lymph # (Auto) 2.0 K/mm3 (1.2-5.4) 12/03/21 01:09 [place] # (Auto) 0.7 K/mm3 (0.0-0.8) 12/03/21 01:09 Eos # (Auto) 0.2 K/mm3 (0.0-0.4) 12/03/21 01:09 Baso # (Auto) 0.0 K/mm3 (0.0-0.1) 12/03/21 01:09 Seg Neutrophils % 64.5 % (40.0-70.0) 12/03/21 01:09 Seg Neutrophils # 5.5 K/mm3 (1.8-7.7) 12/03/21 01:09 PT 14.5 Sec. (12.2-14.9) 12/04/21 00:48 INR 0.99 (0.87-1.13) 12/04/21 00:48 APTT 31.1 Sec. (24.2-36.6) 12/04/21 00:48 Sodium 139 mmol/L (137-145) 12/03/21 01:09 Potassium 3.9 mmol/L (3.6-5.0) 12/03/21 01:09 Chloride 100.9 mmol/L (98-107) 12/03/21 01:09 Carbon Dioxide 23 mmol/L (22-30) 12/03/21 01:09 Anion Gap 19 mmol/L 12/03/21 01:09 BUN 12 mg/dL (9-20) 12/03/21 01:09 Creatinine 0.7 mg/dL (0.8-1.3) L 12/07/21 07:07 Estimated GFR > 60 ml/min 12/07/21 07:07 BUN/Creatinine Ratio 13 % 12/03/21 01:09 Glucose 102 mg/dL (75-100) H 12/03/21 01:09 Hemoglobin A1c 5.0 % (4-6) 12/03/21 01:09 Calcium 9.0 mg/dL (8.4-10.2) 12/03/21 01:09 Iron 38 ug/dL (49-181) L 12/04/21 09:14 TIBC 235 mcg/dL (250-450) L 12/04/21 09:14 Ferritin 189.9 ng/mL (30.0-300.0) 12/04/21 09:14 Total Bilirubin 0.30 mg/dL (0.1-1.2) 12/03/21 01:09 AST 23 units/L (5-40) 12/03/21 01:09 ALT 13 units/L (7-56) 12/03/21 01:09 Alkaline Phosphatase 144 units/L (35-129) H 12/03/21 01:09 Total Protein 6.7 g/dL (6.3-8.2) 12/03/21 01:09 Albumin 3.7 g/dL (3.9-5) L 12/03/21 01:09 Albumin/Globulin Ratio 1.2 % 12/03/21 01:09 Triglycerides 119 mg/dL (2-149) 12/03/21 01:09 Cholesterol 139 mg/dL (50-199) 12/03/21 01:09 LDL Cholesterol Direct 83 mg/dL (50-130) 12/03/21 01:09 HDL Cholesterol 36 mg/dL (40-59) L 12/03/21 01:09 Cholesterol/HDL Ratio 3.86 % 12/03/21 01:09 TSH 4.710 mlU/mL (0.270-4.200) H 12/03/21 01:09 Last Vital Signs Temp 99.0 F 12/06/21 19:42 Pulse 92 H 12/06/21 21:24 Resp 17 12/06/21 19:42 BP 124/68 12/06/21 21:24 Pulse Ox 98 12/06/21 19:42
[2021-12-07] MEDS: levETIRAcetam 500 MG TAB PO SCH ×2 (09:25→21:17)
[2021-12-07] MEDS: ASPIRIN EC 81 MG TAB PO SCH (09:25)
[2021-12-07] MEDS: APIXABAN 2.5 MG TAB PO SCH ×2 (09:26→21:16)
[2021-12-07] MEDS: AMIODARONE 200 MG TAB PO SCH (09:28)
[2021-12-07] MEDS: METOPROLOL TARTRATE 25 MG TAB PO SCH ×2 (09:29→21:19)
[2021-12-07] MEDS: CITALOPRAM 10 MG TAB PO SCH (09:30)
[2021-12-07] MEDS: FUROSEMIDE 40 MG TAB PO SCH (09:30)
[2021-12-07] MEDS: POTASSIUM CHLORIDE ER 20 MEQ TAB PO SCH (09:30)
[2021-12-07] MEDS: MULTIVITAMINS,THER W-MINERALS TAB PO SCH (09:31)
[2021-12-07] MEDS: FERROUS SULFATE 325 MG TAB PO SCH (09:33)
--- NOTE | 2021-12-07 10:43 | Progress Note ---
Hospitalist Physical - Constitutional Vitals: Temp Pulse Resp BP Pulse Ox 97.2 F L 83 16 108/67 98 12/07/21 08:07 12/07/21 09:29 12/07/21 08:07 12/07/21 09:29 12/07/21 08:07 General appearance: Present: no acute distress, well-nourished Results - Labs CBC & Chem 7: 12/06/21 07:20 12/07/21 07:07 Labs: Laboratory Last Values WBC 9.3 K/mm3 (4.5-11.0) 12/06/21 07:20 RBC 3.45 M/mm3 (3.65-5.03) L 12/06/21 07:20 Hgb 9.4 gm/dl (11.8-15.2) L 12/06/21 07:20 Hct 30.0 % (35.5-45.6) L 12/06/21 07:20 MCV 87 fl (84-94) 12/06/21 07:20 MCH 27 pg (28-32) L 12/06/21 07:20 MCHC 31 % (32-34) L 12/06/21 07:20 RDW 17.2 % (13.2-15.2) H 12/06/21 07:20 Plt Count 339 K/mm3 (140-440) 12/06/21 07:20 Lymph % (Auto) 23.3 % (13.4-35.0) 12/03/21 01:09 [place] % (Auto) 8.8 % (0.0-7.3) H 12/03/21 01:09 Eos % (Auto) 2.8 % (0.0-4.3) 12/03/21 01:09 Baso % (Auto) 0.6 % (0.0-1.8) 12/03/21 01:09 Lymph # (Auto) 2.0 K/mm3 (1.2-5.4) 12/03/21 01:09 [place] # (Auto) 0.7 K/mm3 (0.0-0.8) 12/03/21 01:09 Eos # (Auto) 0.2 K/mm3 (0.0-0.4) 12/03/21 01:09 Baso # (Auto) 0.0 K/mm3 (0.0-0.1) 12/03/21 01:09 Seg Neutrophils % 64.5 % (40.0-70.0) 12/03/21 01:09 Seg Neutrophils # 5.5 K/mm3 (1.8-7.7) 12/03/21 01:09 PT 14.5 Sec. (12.2-14.9) 12/04/21 00:48 INR 0.99 (0.87-1.13) 12/04/21 00:48 APTT 31.1 Sec. (24.2-36.6) 12/04/21 00:48 Sodium 139 mmol/L (137-145) 12/03/21 01:09 Potassium 3.9 mmol/L (3.6-5.0) 12/03/21 01:09 Chloride 100.9 mmol/L (98-107) 12/03/21 01:09 Carbon Dioxide 23 mmol/L (22-30) 12/03/21 01:09 Anion Gap 19 mmol/L 12/03/21 01:09 BUN 12 mg/dL (9-20) 12/03/21 01:09 Creatinine 0.7 mg/dL (0.8-1.3) L 12/07/21 07:07 Estimated GFR > 60 ml/min 12/07/21 07:07 BUN/Creatinine Ratio 13 % 12/03/21 01:09 Glucose 102 mg/dL (75-100) H 12/03/21 01:09 Hemoglobin A1c 5.0 % (4-6) 12/03/21 01:09 Calcium 9.0 mg/dL (8.4-10.2) 12/03/21 01:09 Iron 38 ug/dL (49-181) L 12/04/21 09:14 TIBC 235 mcg/dL (250-450) L 12/04/21 09:14 Ferritin 189.9 ng/mL (30.0-300.0) 12/04/21 09:14 Total Bilirubin 0.30 mg/dL (0.1-1.2) 12/03/21 01:09 AST 23 units/L (5-40) 12/03/21 01:09 ALT 13 units/L (7-56) 12/03/21 01:09 Alkaline Phosphatase 144 units/L (35-129) H 12/03/21 01:09 Total Protein 6.7 g/dL (6.3-8.2) 12/03/21 01:09 Albumin 3.7 g/dL (3.9-5) L 12/03/21 01:09 Albumin/Globulin Ratio 1.2 % 12/03/21 01:09 Triglycerides 119 mg/dL (2-149) 12/03/21 01:09 Cholesterol 139 mg/dL (50-199) 12/03/21 01:09 LDL Cholesterol Direct 83 mg/dL (50-130) 12/03/21 01:09 HDL Cholesterol 36 mg/dL (40-59) L 12/03/21 01:09 Cholesterol/HDL Ratio 3.86 % 12/03/21 01:09 TSH 4.710 mlU/mL (0.270-4.200) H 12/03/21 01:09 Kurtz/IV: Voiding Method Toilet Active Medications - Current Medications Current Medications: Generic Name Dose Route Start Last Admin Trade Name Freq PRN Reason Stop Dose Admin Amiodarone HCl 200 mg 12/04/21 10:00 12/07/21 09:28 Amiodarone 200 Mg Tab PO 200 mg DAILY [facility] Administration Apixaban 5 mg 12/06/21 22:00 12/07/21 09:26 Apixaban 2.5 Mg Tab PO 5 mg Q12HR [facility] Administration Protocol Aspirin 81 mg 12/04/21 10:00 12/07/21 09:25 Aspirin Ec 81 Mg Tab PO 81 mg QDAY [facility] Administration Atorvastatin Calcium 80 mg 12/04/21 22:00 12/06/21 21:23 Atorvastatin 40 Mg Tab PO 80 mg QHS [facility] Administration Citalopram Hydrobromide 10 mg 12/04/21 10:00 12/07/21 09:30 Citalopram 10 Mg Tab PO 10 mg QDAY [facility] Administration Ferrous Sulfate 325 mg 12/06/21 10:00 12/07/21 09:33 Ferrous Sulfate 325 Mg Tab PO 325 mg QDAY [facility] Administration Furosemide 40 mg 12/04/21 10:00 12/07/21 09:30 Furosemide 40 Mg Tab PO 40 mg QDAY [facility] Administration Levetiracetam 1,000 mg 12/03/21 01:00 12/07/21 09:25 Levetiracetam 500 Mg Tab PO 1,000 mg BID [facility] Administration Melatonin 10 mg 12/04/21 22:00 12/06/21 21:23 Melatonin 5 Mg Tab PO 10 mg QHS [facility] Administration Metoprolol Tartrate 50 mg 12/05/21 10:00 12/07/21 09:29 Metoprolol Tartrate 25 Mg Tab PO Not Given BID [facility] Multivitamins/Minerals 1 each 12/04/21 10:00 12/07/21 09:31 Multivitamins,Ther W-Minerals Tab PO 1 each QDAY [facility] Administration Potassium Chloride 20 meq 12/04/21 10:00 12/07/21 09:30 Potassium Chloride Er 20 Meq Tab PO 20 meq QDAY [facility] Administration Trazodone HCl 75 mg 12/05/21 22:00 12/06/21 21:22 Trazodone 50 Mg Tab PO 75 mg QHS [facility] Administration Nutrition/Malnutrition Assess - Dietary Evaluation Nutrition/Malnutrition Findings: Nutrition Notes Start: 12/03/21 19:20 Freq: Status: Active Protocol: Document 12/03/21 19:20 KAYLIN (Rec: 12/03/21 19:35 KAYLIN [id number]) Nutrition Notes Need for Assessment generated from: MD Order Initial or Follow up Assessment Current Diagnosis Hypertension,Stroke, Hyperlipidemia Other Pertinent Diagnosis Suicidal Ideation, Polysubstance Abuse, Anemia, Asthma, Seizure, ... Current Diet Regular Diet (since B 12/02). Labs/Tests 12/03: Glu 102. Pertinent Medications 12/03: Nutritionally unremarkable. Height 6 ft Weight 81.9 kg [place] Body Weight (kg) 80.90 BMI 24.5 Intake Prior to Admission Good Weight change and time frame Pt denies having loss body weight [employer]OOK[employer]. Weight Status Appropriate Subjective/Other Information RD consult for dietary supplementation assessment. Pt's PO intake of meals has been Good (100%) and well tolerated, according to ADL notes. Pt is on Room Air, O2 saturation @ 97%, according to Vital Signs notes. I will not prescribe dietary supplementatin since it will not be usefull to compensate for poor or insufficient PO intake of meals. Percent of energy/protein needs met: Prescribed Regular Diet provides for energy/protein needs (2,289 Kcal/89 g) during LOS. Burn Absent Trauma Absent GI Symptoms None Food Allergy No Skin Integrity/Comment Assessment WNL. 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 No Is Patient Ambulatory and/or Out of Bed Yes REE-([facility]-ambulatory/OOB) [ [id number] [id number]] Calculation Used for Recommendations [facility] Additional Notes Protein: 0.8-1 g/Kg ABW; 66-82 g/day. Fluids: 1 ml/Kcal, or as per MD. Nutrition Intervention Change Diet Order: Continue Regular Diet. Follow-Up By: 12/10/21 Additional Comments Continue monitoring food tolerance, %PO intake of meals , and BM.
[2021-12-07] MEDS: traZODone 50 MG TAB PO SCH (21:15)
[2021-12-07] MEDS: MELATONIN 5 MG TAB PO SCH (21:17)
[2021-12-08 06:30] LABS: Hematocrit 30.9 % (35.5-45.6); Hemoglobin 9.8 gm/dl (11.8-15.2); Mean Corpuscular HGB Conc 32 % (32-34); Mean Corpuscular Volume 86 fl (84-94); Platelet Count 331 K/mm3 (140-440); Red Cell Distribution Width 16.9 % (13.2-15.2)
[2021-12-08 08:47] VITALS: BP 97/72
[2021-12-08] MEDS: CITALOPRAM 10 MG TAB PO SCH (09:19)
[2021-12-08] MEDS: MULTIVITAMINS,THER W-MINERALS TAB PO SCH (09:19)
[2021-12-08] MEDS: levETIRAcetam 500 MG TAB PO SCH (09:19)
[2021-12-08] MEDS: APIXABAN 2.5 MG TAB PO SCH (09:19)
[2021-12-08] MEDS: FERROUS SULFATE 325 MG TAB PO SCH (09:19)
[2021-12-08] MEDS: ASPIRIN EC 81 MG TAB PO SCH (09:19)
[2021-12-08] MEDS: POTASSIUM CHLORIDE ER 20 MEQ TAB PO SCH (09:19)
[2021-12-08] MEDS: METOPROLOL TARTRATE 25 MG TAB PO SCH (09:20)
[2021-12-08] MEDS: AMIODARONE 200 MG TAB PO SCH (09:23)
[2021-12-08] MEDS: FUROSEMIDE 40 MG TAB PO SCH (09:32)
--- NOTE | 2021-12-08 10:27 | Discharge Summary ---
Providers - Providers Date of Admission: 12/02/21 23:01 Date of discharge: 12/08/21 Attending physician: KIM RIVERS MD 12/02/21 22:30 Consult to Physician [CONS] Routine Comment: Consulting Provider: TIFFANI KIMBLE Physician Instructions: Please manage problems as per H&P. Reason For Exam: New admission. 12/03/21 14:38 Physical Therapy Evaluation and Treat [CONS] Stat Comment: Reason For Exam: assess gait -s/p fall x 3 to 4 days ago Primary care physician: HIDE PASTER Hospitalization Reason for admission: depression Admitting Diagnosis: F33.9 - MAJOR DEPRESSIVE DISORDER, RECURRENT, UNSPECIFIED Condition: Stable Hospital course: The patient was provided inpatient psychiatric treatment with safe and supportive environment, group/individual therapy, psychiatric medication, medication adjustment, adverse effect monitor, medical evaluation, medical treatment, social service assessment, social support meeting, placement assessment and psycho-education. The patients mood, cognition, behavior, motivation, compliance to treatment and appreciation on family/social support are improved and stabilized. At the time of discharge, the patient had no suicidal ideas, no homicidal ideas, no aggressive thoughts, no endangering behavior and no debilitating adverse effects. The patient agreed on the treatment plan, understood the risk, benefit, alternative treatment, potential consequence of no treatment, and gave informed consent. Disposition: 01 HOME / SELF CARE / HOMELESS Time spent for discharge: 35 Allergies/Adverse Reactions: Allergies naproxen Allergy (Intermediate, Verified 12/03/21 14:38) Shortness of Breath reaction is SOB and Rash Vital Signs: Last Vital Signs Temp 97.7 F 12/08/21 08:34 Pulse 103 H 12/08/21 08:34 Resp 18 12/08/21 08:34 BP 97/72 12/08/21 09:20 Pulse Ox 97 12/08/21 08:34 Last Lab: Laboratory Last Values WBC 9.0 K/mm3 (4.5-11.0) 12/08/21 06:07 RBC 3.60 M/mm3 (3.65-5.03) L 12/08/21 06:07 Hgb 9.8 gm/dl (11.8-15.2) L 12/08/21 06:07 Hct 30.9 % (35.5-45.6) L 12/08/21 06:07 MCV 86 fl (84-94) 12/08/21 06:07 MCH 27 pg (28-32) L 12/08/21 06:07 MCHC 32 % (32-34) 12/08/21 06:07 RDW 16.9 % (13.2-15.2) H 12/08/21 06:07 Plt Count 331 K/mm3 (140-440) 12/08/21 06:07 Lymph % (Auto) 23.3 % (13.4-35.0) 12/03/21 01:09 Harvey % (Auto) 8.8 % (0.0-7.3) H 12/03/21 01:09 Eos % (Auto) 2.8 % (0.0-4.3) 12/03/21 01:09 Baso % (Auto) 0.6 % (0.0-1.8) 12/03/21 01:09 Lymph # (Auto) 2.0 K/mm3 (1.2-5.4) 12/03/21 01:09 Harvey # (Auto) 0.7 K/mm3 (0.0-0.8) 12/03/21 01:09 Eos # (Auto) 0.2 K/mm3 (0.0-0.4) 12/03/21 01:09 Baso # (Auto) 0.0 K/mm3 (0.0-0.1) 12/03/21 01:09 Seg Neutrophils % 64.5 % (40.0-70.0) 12/03/21 01:09 Seg Neutrophils # 5.5 K/mm3 (1.8-7.7) 12/03/21 01:09 PT 14.5 Sec. (12.2-14.9) 12/04/21 00:48 INR 0.99 (0.87-1.13) 12/04/21 00:48 APTT 31.1 Sec. (24.2-36.6) 12/04/21 00:48 Sodium 139 mmol/L (137-145) 12/03/21 01:09 Potassium 3.9 mmol/L (3.6-5.0) 12/03/21 01:09 Chloride 100.9 mmol/L (98-107) 12/03/21 01:09 Carbon Dioxide 23 mmol/L (22-30) 12/03/21 01:09 Anion Gap 19 mmol/L 12/03/21 01:09 BUN 12 mg/dL (9-20) 12/03/21 01:09 Creatinine 0.7 mg/dL (0.8-1.3) L 12/07/21 07:07 Estimated GFR > 60 ml/min 12/07/21 07:07 BUN/Creatinine Ratio 13 % 12/03/21 01:09 Glucose 102 mg/dL (75-100) H 12/03/21 01:09 Hemoglobin A1c 5.0 % (4-6) 12/03/21 01:09 Calcium 9.0 mg/dL (8.4-10.2) 12/03/21 01:09 Iron 38 ug/dL (49-181) L 12/04/21 09:14 TIBC 235 mcg/dL (250-450) L 12/04/21 09:14 Ferritin 189.9 ng/mL (30.0-300.0) 12/04/21 09:14 Total Bilirubin 0.30 mg/dL (0.1-1.2) 12/03/21 01:09 AST 23 units/L (5-40) 12/03/21 01:09 ALT 13 units/L (7-56) 12/03/21 01:09 Alkaline Phosphatase 144 units/L (35-129) H 12/03/21 01:09 Total Protein 6.7 g/dL (6.3-8.2) 12/03/21 01:09 Albumin 3.7 g/dL (3.9-5) L 12/03/21 01:09 Albumin/Globulin Ratio 1.2 % 12/03/21 01:09 Triglycerides 119 mg/dL (2-149) 12/03/21 01:09 Cholesterol 139 mg/dL (50-199) 12/03/21 01:09 LDL Cholesterol Direct 83 mg/dL (50-130) 12/03/21 01:09 HDL Cholesterol 36 mg/dL (40-59) L 12/03/21 01:09 Cholesterol/HDL Ratio 3.86 % 12/03/21 01:09 TSH 4.710 mlU/mL (0.270-4.200) H 12/03/21 01:09 Core Measure Documentation - Palliative Care Palliative Care/ Comfort Measures: Not Applicable - Core Measures Any of the following diagnoses?: none Exam - Constitutional Vitals: Temp Pulse Resp BP Pulse Ox 97.7 F 103 H 18 97/72 97 12/08/21 08:34 12/08/21 08:34 12/08/21 08:34 12/08/21 09:20 12/08/21 08:34 General appearance: Present: no acute distress - EENT Eyes: Present: PERRL, EOM intact ENT: hearing intact, clear oral mucosa - Neck Neck: Present: supple, normal ROM - Respiratory Respiratory effort: normal Plan Activity: advance as tolerated Weight Bearing Status: Weight Bear as Tolerated Care Plan Goals: Maintain good and stable mental health Plan of Treatment: The patient should be compliant with medications, not to use drugs and not to drink alcohol.The patient understands that if suicidal ideas, homicidal ideas, or any endangering thoughts/behavior arise, they should immediately seek for emergent assistance including but not limited to crisis hot line and emergency room. Follow up with outpatient Psychiatrist and PCP within 7 - 14 days of discharge. Assessment: Major Depressive Disorder Follow up with: PRIMARY CARE, [Primary Care Provider] - 7 Days Prescriptions: traZODone [Desyrel] 75 mg PO QHS #45 tablet Melatonin [Melatonin 5MG TAB] 10 mg PO QHS #60 tablet Citalopram [celeXA] 10 mg PO QDAY #30 Multivitamin Tab W-MINERAL [Multiple Vitamin/Mineral (Theragran M)] 1 each PO QDAY #30 tablet
== END 2021-12-08 13:38 | disposition home or self-care (01) | DRG 885 ==
LOC: 3A 15:07 → UNDOADMIN 15:07 → 5A 23:01
PROVIDERS: ADMIT Psychiatry & Neurology Psychiatry; ATTEND Psychiatry & Neurology Psychiatry
DX: F33.9 Major depressive disorder, recurrent, unspecified (principal); I50.9 Heart failure, unspecified; I11.0 Hypertensive heart disease with heart failure; E78.5 Hyperlipidemia, unspecified; Z86.73 Personal history of transient ischemic attack (TIA), and cerebral infarction without residual deficits; D64.9 Anemia, unspecified; R45.851 Suicidal ideations; J45.20 Mild intermittent asthma, uncomplicated; F19.20 Other psychoactive substance dependence, uncomplicated
CPT/HCPCS: 36415; 80053; 80061; 82565; 82728; 83036; 83550; 84443; 85025; 85027; 85610; 85730; G0378